=== PATIENT | female | born 1935 | race Caucasian/White ===

== ENCOUNTER 2018-01-07 20:14 | Emergency (ER) | payer MEDICARE, BC ==
[2018-01-07 20:36] VITALS: BP 162/75
--- NOTE | 2018-01-07 20:54 | EDM.PDOC ---
ED HPI GENERAL MEDICAL PROBLEM - General Chief Complaint: Respiratory Problem Stated Complaint: SOB Time Seen by Provider: 01/07/18 20:45 Source of Information: Reports: Patient, Old Records, RN History Limitations: Reports: No Limitations - History of Present Illness INITIAL COMMENTS - FREE TEXT/NARRATIVE: 82 yo female presents with dyspnea of a couple days duration. Sx's worse with exertion or lying flat. No fever, cough, or pleuritic chest pain. No calf pain. Has a hx of afib. Onset: Gradual Onset Date: 01/05/18 Duration: Day(s):, Getting Worse Location: Reports: Chest Quality: Reports: Other (no pain) Severity: Mild Improves with: Reports: Rest Worsens with: Reports: Movement ( or lying flat) Context: Reports: Other (Hx of "fluid overload" and afib) Associated Symptoms: Reports: Shortness of Breath. 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: Other (see below) (none) - Related Data Allergies Allergy/AdvReac Type Severity Reaction Status Date / Time atorvastatin AdvReac Intermediate Muscle Verified 01/07/18 20:49 Aches simvastatin AdvReac Intermediate Muscle Verified 01/07/18 20:49 Aches Home Meds: Home Meds Cholecalciferol (Vitamin D3) [Vitamin D3] 2,000 unit PO DAILY 06/21/13 [History] Digoxin [Lanoxin] 125 mcg PO DAILY 06/21/13 [History] Metoprolol Tartrate [Lopressor] 100 mg PO BID 06/21/13 [History] Docusate Sodium [Colace] 100 mg PO DAILY PRN 09/01/14 [History] Losartan [Cozaar] 25 mg PO DAILY 09/01/14 [History] Aspirin 1 tab PO DAILY 05/19/16 [History] glipiZIDE [Glipizide] 5 mg PO BID 05/19/16 [History] Warfarin [Coumadin] 1.25 mg PO Tu@1300 tablet 07/22/16 [Rx] Warfarin [Coumadin] 2.5 mg PO SuMoWeThFrSa@1300 tablet 07/22/16 [Rx] Spironolactone [Aldactone] 25 mg PO DAILY #15 tab 01/07/18 [Rx] Past Medical History Cardiovascular History: Reports: Afib, Hypertension Respiratory History: Reports: Other (See Below) Other Respiratory History: spot on right lung Gastrointestinal History: Reports: Cholelithiasis Genitourinary History: Reports: Renal Calculus 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: Endocrine/Metabolic History: Reports: Diabetes, Type II, Hypothyroidism Oncologic (Cancer) History: Reports: Breast - Infectious Disease History Infectious Disease History: Reports: Other (See Below) Other Infectious Disease History: pt is unaware - Past Surgical History Cardiovascular Surgical History: Reports: None GI Surgical History: Reports: Cholecystectomy, Colonoscopy Female Surgical History: Reports: Kidney stone extraction Endocrine Surgical History: Reports: Parathyroidectomy Oncologic Surgical History: Reports: Mastectomy Other Oncologic Surgeries/Procedures: right Social & Family History - Tobacco Use Smoking Status *Q: Never Smoker Years of Tobacco use: 10 Used Tobacco, but Quit: Yes Month/Year Tobacco Last Used: Second Hand Smoke Exposure: No - Caffeine Use Caffeine Use: Reports: None - Alcohol Use Days Per Week of Alcohol Use: 0 - Recreational Drug Use Recreational Drug Use: No ED ROS GENERAL - Review of Systems Review Of Systems: See Below Constitutional: Reports: No Symptoms HEENT: Reports: No Symptoms Respiratory: Reports: Shortness of Breath. Denies: Wheezing, Pleuritic Chest Pain, Cough, Sputum, Hemoptysis Cardiovascular: Reports: No Symptoms GI/Abdominal: Reports: No Symptoms : Reports: No Symptoms Musculoskeletal: Reports: No Symptoms Skin: Reports: No Symptoms Neurological: Reports: No Symptoms ED EXAM, GENERAL - Physical Exam Exam: See Below Exam Limited By: No Limitations General Appearance: Alert, WD/WN, No Apparent Distress Eye Exam: Bilateral Eye: Normal Inspection Ears: Normal External Exam, Normal Canal, Hearing Grossly Normal, Normal TMs Ear Exam: Bilateral Ear: Auricle Normal, Canal Normal, TM normal Nose: Normal Inspection, Normal Mucosa, No Blood Throat/Mouth: Normal Inspection, Normal Lips, Normal Oropharynx, Normal Voice, No Airway Compromise Head: Atraumatic, Normocephalic Neck: Normal Inspection, Supple, Non-Tender Respiratory/Chest: No Respiratory Distress, Lungs Clear, Normal Breath Sounds, No Accessory Muscle Use Cardiovascular: Regular Rate, Rhythm, No Edema GI/Abdominal: Normal Bowel Sounds, Soft, Non-Tender, No Distention Back Exam: Normal Inspection. No: CVA Tenderness (R), CVA Tenderness (L) Extremities: Normal Inspection, Normal Range of Motion, Non-Tender, No Pedal Edema Neurological: Alert, Oriented, CN II-XII Intact, Normal Cognition Psychiatric: Normal Affect, Normal Mood Skin Exam: Warm, Dry, Intact, Normal Color, No Rash Lymphatic: No Adenopathy Course - Vital Signs Last Recorded V/S: Last Vital Signs Temp 37.2 C 01/07/18 20:56 Pulse 90 01/07/18 20:56 Resp 24 H 01/07/18 20:56 BP 162/75 H 01/07/18 21:34 Pulse Ox 92 L 01/07/18 20:56 - Orders/Labs/Meds Orders: Active Orders 24 hr Category Date Time Status Cardiac Monitoring [RC] .As Directed Care 01/07/18 20:49 Active Chest 2V [CR] Stat Exams 01/07/18 20:50 Taken Sodium Chloride 0.9% [Saline Flush] Med 01/07/18 21:22 Active 10 ml FLUSH ASDIRECTED PRN Saline Lock Insert [OM.PC] Routine Oth 01/07/18 21:22 Ordered Medication Orders Sodium Chloride (Saline Flush) 10 ml FLUSH ASDIRECTED PRN PRN Reason: Keep Vein Open Last Admin: 01/07/18 21:34 Dose: 10 ml Labs: Laboratory Tests 01/07/18 01/07/18 01/07/18 Range/Units 21:00 21:00 21:00 WBC 8.5 (4.5-11.0) K/uL RBC 4.48 (3.30-5.50) M/uL Hgb 13.4 (12.0-15.0) g/dL Hct 40.6 (36.0-48.0) % MCV 91 (80-98) fL MCH 30 (27-31) pg MCHC 33 (32-36) % Plt Count 217 (150-400) K/uL Sodium 138 L (140-148) mmol/L Potassium 3.6 (3.6-5.2) mmol/L Chloride 104 (100-108) mmol/L Carbon Dioxide 26 (21-32) mmol/L Anion Gap 11.6 (5.0-14.0) mmol/L BUN 22 H (7-18) mg/dL Creatinine 1.3 H (0.6-1.0) mg/dL Est Cr Clr Drug Dosing 34.87 mL/min Estimated GFR (MDRD) 39 L (>60) Glucose 281 H (74-106) mg/dL Calcium 8.3 L (8.5-10.1) mg/dL Troponin I < 0.017 (0.000-0.056) ng/mL NT-Pro-B Natriuret Pep 7675 H (5-450) pg/mL Meds: Medications Generic Name Dose Route Start Last Admin Trade Name Freq PRN Reason Stop Dose Admin Sodium Chloride 10 ml 01/07/18 21:22 01/07/18 21:34 Saline Flush FLUSH 10 ml ASDIRECTED PRN Administration Keep Vein Open Discontinued Medications Generic Name Dose Route Start Last Admin Trade Name Freq PRN Reason Stop Dose Admin Furosemide 40 mg 01/07/18 21:22 01/07/18 21:34 Lasix IVPUSH 01/07/18 21:23 40 mg ONETIME ONE Administration - Radiology Interpretation Free Text/Narrative:: CXR-increased cephalization of pulmonary vasculature. Departure - Departure Time of Disposition: 22:21 Disposition: Home, Self-Care 01 Condition: Fair Clinical Impression: Congestive heart failure Qualifiers: Heart failure type: systolic Heart failure chronicity: acute on chronic Qualified Code(s): I50.23 - Acute on chronic systolic (congestive) heart failure - Discharge Information Prescriptions: Spironolactone [Aldactone] 25 mg PO DAILY #15 tab Referrals: PCP,None [Primary Care Provider] - Forms: ED Department Discharge Additional Instructions: Increase your Cozaar to 50 mg every day. Take spironolactone 25 mg every morning. Avoid salt. Recheck this week in the clinic, call for an appt. - My Orders Last 24 Hours: My Active Orders 01/07/18 20:49 Cardiac Monitoring [RC] .As Directed 01/07/18 20:50 Chest 2V [CR] Stat 01/07/18 21:22 Sodium Chloride 0.9% [Saline Flush] 10 ml FLUSH ASDIRECTED PRN Saline Lock Insert [OM.PC] Routine - Assessment/Plan Last 24 Hours: My Active Orders 01/07/18 20:49 Cardiac Monitoring [RC] .As Directed 01/07/18 20:50 Chest 2V [CR] Stat 01/07/18 21:22 Sodium Chloride 0.9% [Saline Flush] 10 ml FLUSH ASDIRECTED PRN Saline Lock Insert [OM.PC] Routine
[2018-01-07] MEDS ORDERED: Furosemide 40 MG/4 ML VIAL IVPUSH ONE (21:22)
[2018-01-07] MEDS ORDERED: Sodium Chloride 0.9% 10 ML Syringe FLUSH PRN (21:22)
--- NOTE | 2018-01-08 09:25 | CR ---
Cardiomegaly is mild/moderate.. No focal consolidation. Mild interstitial thickening can indicate mil d vascular congestion.
== END 2018-01-07 22:51 | disposition home or self-care (01) ==
LOC: JP.ED 20:14
DX: I11.0 Hypertensive heart disease with heart failure (principal); I50.23 Acute on chronic systolic (congestive) heart failure; I48.91 Unspecified atrial fibrillation; Z87.442 Personal history of urinary calculi; E03.9 Hypothyroidism, unspecified; Z79.01 Long term (current) use of anticoagulants; Z88.8 Allergy status to other drugs, medicaments and biological substances; Z79.82 Long term (current) use of aspirin; Z79.899 Other long term (current) drug therapy; E11.9 Type 2 diabetes mellitus without complications
CPT/HCPCS: 36415; 71046; 80048; 83880; 84484; 85027; 96374; 99284; 99285; J1940; J7050

== ENCOUNTER 2018-07-20 15:08 | Emergency (ER) | payer MEDICARE, BC ==
[2018-07-20] MEDS ORDERED: Metoprolol Tartrate 50 MG Tab PO ONE (16:15)
[2018-07-20 16:34] VITALS: BP 117/79
--- NOTE | 2018-07-20 16:38 | EDM.PDOC ---
ED HPI GENERAL MEDICAL PROBLEM - General Chief Complaint: Chest Pain Stated Complaint: AFIB Time Seen by Provider: 07/20/18 15:20 Source of Information: Reports: Patient, Family History Limitations: Reports: No Limitations - History of Present Illness INITIAL COMMENTS - FREE TEXT/NARRATIVE: 83-year-old female with known atrial fibrillation has a cardiology consultation at [facility] for an overdrive pacemaker but recently had a cardiology consult in [place] at which time they stopped her digoxin, and reduced her metoprolol from 100 mg twice daily to 100 mg in the evening. Over the past 1-2 days she's had increased dyspnea with activity. She denies pain, no nausea or vomiting. 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 Onset: Gradual Duration: Day(s): (Over the past 2 days) Associated Symptoms: Reports: Cough, Shortness of Breath, Weakness. Denies: Chest Pain - Related Data Allergies Allergy/AdvReac Type Severity Reaction Status Date / Time atorvastatin AdvReac Intermediate Muscle Verified 07/20/18 15:21 Aches simvastatin AdvReac Intermediate Muscle Verified 07/20/18 15:21 Aches Home Meds: Home Meds Cholecalciferol (Vitamin D3) [Vitamin D3] 2,000 unit PO DAILY 06/21/13 [History] Metoprolol Tartrate [Lopressor] 100 mg PO BID 06/21/13 [History] Docusate Sodium [Colace] 100 mg PO DAILY PRN 09/01/14 [History] Losartan [Cozaar] 25 mg PO DAILY 09/01/14 [History] Aspirin 1 tab PO DAILY 05/19/16 [History] glipiZIDE [Glipizide] 5 mg PO BID 05/19/16 [History] Spironolactone [Aldactone] 25 mg PO DAILY #15 tab 01/07/18 [Rx] Levothyroxine 125 mcg PO ACBREAKFAST 05/23/18 [History] Warfarin [Coumadin] 2.5 mg PO DAILY 05/23/18 [History] traZODone 50 mg PO BEDTIME 05/23/18 [History] Past Medical History HEENT History: Reports: Impaired Vision Cardiovascular History: Reports: Afib, High Cholesterol, Hypertension Other Cardiovascular History: cardioversions in the past Respiratory History: Reports: SOB, Other (See Below) Other Respiratory History: spot on right lung Gastrointestinal History: Reports: Cholelithiasis Genitourinary History: Reports: Renal Calculus 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: Endocrine/Metabolic History: Reports: Diabetes, Type II, Hypothyroidism, Vitamin D Deficiency Oncologic (Cancer) History: Reports: Breast - Infectious Disease History Infectious Disease History: Reports: Other (See Below) Other Infectious Disease History: pt is unaware - Past Surgical History Head Surgeries/Procedures: Reports: None HEENT Surgical History: Reports: None Cardiovascular Surgical History: Reports: None Respiratory Surgical History: Reports: None GI Surgical History: Reports: Cholecystectomy, Colonoscopy Female Surgical History: Reports: Kidney stone extraction Endocrine Surgical History: Reports: Parathyroidectomy Oncologic Surgical History: Reports: Mastectomy Other Oncologic Surgeries/Procedures: right Dermatological Surgical History: Reports: None Social & Family History - Family History Family Medical History: Noncontributory - Tobacco Use Smoking Status *Q: Former Smoker Used Tobacco, but Quit: Yes Month/Year Tobacco Last Used: 1971 - Caffeine Use Caffeine Use: Reports: None - Recreational Drug Use Recreational Drug Use: No ED ROS GENERAL - Review of Systems Review Of Systems: See Below Constitutional: Reports: Malaise. Denies: Fever, Chills Respiratory: Reports: Shortness of Breath, Cough Cardiovascular: Reports: Palpitations. Denies: Chest Pain GI/Abdominal: Denies: Nausea, Vomiting Skin: Reports: No Symptoms Neurological: Denies: Headache ED EXAM, GENERAL - Physical Exam Exam: See Below Exam Limited By: No Limitations General Appearance: Alert, No Apparent Distress Head: Atraumatic Respiratory/Chest: No Respiratory Distress, Lungs Clear Cardiovascular: Tachycardia, Irregularly Irregular GI/Abdominal: Soft, Non-Tender Extremities: No: Pedal Edema Neurological: Alert, Oriented Psychiatric: Normal Affect, Normal Mood EKG INTERPRETATION Rhythm: A-Fib Rate (Beats/Min): 129 Course - Vital Signs Last Recorded V/S: Last Vital Signs Temp 97.4 F 07/20/18 15:26 Pulse 115 H 07/20/18 16:33 Resp 24 H 07/20/18 15:46 BP 117/79 07/20/18 16:33 Pulse Ox 97 07/20/18 16:33 - Orders/Labs/Meds Meds: Medications Discontinued Medications Generic Name Dose Route Start Last Admin Trade Name Freq PRN Reason Stop Dose Admin Metoprolol Tartrate 100 mg 07/20/18 16:15 07/20/18 16:19 Lopressor PO 07/20/18 16:16 100 mg ONETIME ONE Administration - Re-Assessments/Exams Free Text/Narrative Re-Assessment/Exam: 07/20/18 16:32 An EKG was done which showed atrial fibrillation with rapid ventricular response. He was compared to her EKG from April and the voltages looks similar. Her symptoms are very likely the fact that she is now off of the digoxin and only on half of metoprolol. She has no peripheral edema. Initially when she arrived her O2 saturations were 88-92%, O2 saturations after she sat down and had some brief nasal cannula oxygen and was then discontinued and her O2 saturations remained 92-95%. She was given 100 mg of oral metoprolol and told to resume her regular twice daily dose but her plan is to go down to the [facility] tomorrow for her consultation. An EKG copy was given to the patient, as well as her EKG from 3 months ago. Departure - Departure Time of Disposition: 16:52 Disposition: Home, Self-Care 01 Condition: Good Clinical Impression: Atrial fibrillation Qualifiers: Atrial fibrillation type: chronic Qualified Code(s): I48.2 - Chronic atrial fibrillation Instructions: Atrial Fibrillation, [id number] Referrals: PCP,None [Primary Care Provider] - Forms: ED Department Discharge Care Plan Goals: Take an additional dose of metoprolol in 3 or 4 hours, and take both EKG copies to [facility] for your follow-up. Avoid salt, and return to the emergency room any time if you feel you are worsening
== END 2018-07-20 16:45 | disposition home or self-care (01) ==
LOC: JP.ED 15:08
DX: I48.2 Chronic atrial fibrillation (principal); I10 Essential (primary) hypertension; E78.00 Pure hypercholesterolemia, unspecified; E11.9 Type 2 diabetes mellitus without complications; E03.9 Hypothyroidism, unspecified; Z79.82 Long term (current) use of aspirin; Z87.891 Personal history of nicotine dependence; Z79.84 Long term (current) use of oral hypoglycemic drugs; Z79.01 Long term (current) use of anticoagulants; Z79.899 Other long term (current) drug therapy; Z88.8 Allergy status to other drugs, medicaments and biological substances
CPT/HCPCS: 93005; 99284; A9270

== ENCOUNTER 2020-02-20 23:28 | Emergency (ER) | payer MEDICARE, BC ==
--- NOTE | 2020-02-20 23:34 | EDM.PDOC ---
ED HPI GENERAL MEDICAL PROBLEM - General Stated Complaint: POSSIBLE STROKE? Time Seen by Provider: 02/20/20 23:30 Source of Information: Reports: Patient, Family History Limitations: Reports: No Limitations - History of Present Illness INITIAL COMMENTS - FREE TEXT/NARRATIVE: 84-year-old female who is on Coumadin therapy for atrial fibrillation, presents with left-sided weakness after a headache earlier today. She was at the Coumadin clinic today and her INR was 2.2, when she got home she had a headache which is unusual for her. She took some Tylenol and lay down, when she woke around 6 PM she noticed left leg and left arm weakness and lack of coordination. It has not improved as the evening has gone on so she called her children they came and got her and brought her in. Her headache is gone. She has had no fall or trauma. She is still unable to bear weight with any coordination and her balance is significantly affected. She also has some noticeable facial droop when her facial muscles are at rest, she can actively smile however and raise her eyebrows. Onset: Unknown/Unsure (Symptoms started around 6 PM) Duration: Hour(s): (6 hours) Location: Reports: Other (Left side) Associated Symptoms: Reports: Other (Headache earlier, resolved). Denies: Malaise, Nausea/Vomiting, Shortness of Breath - Related Data Allergies Allergy/AdvReac Type Severity Reaction Status Date / Time atorvastatin AdvReac Intermediate Muscle Verified 02/21/20 00:03 Aches simvastatin AdvReac Intermediate Muscle Verified 02/21/20 00:03 Aches Home Meds: Home Meds Cholecalciferol (Vitamin D3) [Vitamin D3] 2,000 unit PO DAILY 06/21/13 [History] Docusate Sodium [Colace] 100 mg PO DAILY PRN 09/01/14 [History] glipiZIDE [Glipizide] 5 mg PO BID 05/19/16 [History] Levothyroxine 125 mcg PO ACBREAKFAST 05/23/18 [History] Warfarin [Coumadin] 2.5 mg PO DAILY 05/23/18 [History] traZODone 50 mg PO BEDTIME 05/23/18 [History] Aspirin [Adult Low Dose Aspirin EC] 81 mg PO DAILY 08/30/18 [History] Bumetanide [Bumex] 4 mg PO DAILY #60 tab 09/02/18 [Rx] Metoprolol Succinate [Toprol XL 50mg] 50 mg PO DAILY #30 tab.er 09/02/18 [Rx] Past Medical History HEENT History: Reports: Impaired Vision Cardiovascular History: Reports: Afib, Heart Failure, High Cholesterol, Hypertension, Pacemaker Other Cardiovascular History: cardioversions in the past Respiratory History: Reports: SOB, Other (See Below) Other Respiratory History: spot on right lung Gastrointestinal History: Reports: Cholelithiasis Genitourinary History: Reports: Renal Calculus 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: Endocrine/Metabolic History: Reports: Diabetes, Type II, Hypothyroidism, Vitamin D Deficiency Oncologic (Cancer) History: Reports: Breast - Infectious Disease History Infectious Disease History: Reports: Chicken Pox, Measles, Mumps Other Infectious Disease History: pt is unaware - Past Surgical History Head Surgeries/Procedures: Reports: None HEENT Surgical History: Reports: None Cardiovascular Surgical History: Reports: None, AICD, Pacer Respiratory Surgical History: Reports: None GI Surgical History: Reports: Cholecystectomy, Colonoscopy Female Surgical History: Reports: Kidney stone extraction Endocrine Surgical History: Reports: Parathyroidectomy Oncologic Surgical History: Reports: Mastectomy Other Oncologic Surgeries/Procedures: right Dermatological Surgical History: Reports: None Social & Family History - Family History Family Medical History: Noncontributory - Caffeine Use Caffeine Use: Reports: Coffee, Soda - Living Situation & Occupation Occupation: Retired (lives with Son Bird.) ED ROS GENERAL - Review of Systems Review Of Systems: See Below Constitutional: Denies: Fever, Chills Respiratory: Denies: Shortness of Breath Cardiovascular: Denies: Chest Pain GI/Abdominal: Denies: Abdominal Pain : Reports: Other (Was treated for a UTI recently) Skin: Reports: Bruising (Bruises easily) Neurological: Reports: Headache Psychiatric: Reports: No Symptoms ED EXAM, NEURO - Physical Exam Exam: See Below Exam Limited By: No Limitations General Appearance: Alert, No Apparent Distress, Other (Answering questions appropriately, alert and oriented) Eye Exam: Bilateral Eye: EOMI Throat/Mouth: Other (Mild drooping of the left facial muscles when at rest) Head Exam: Atraumatic Neck: Supple, Non-Tender Respiratory/Chest: Lungs Clear Cardiovascular: Regular Rate, Rhythm GI/Abdominal: Soft, Non-Tender Neurological: Alert, Oriented x 3, Other (Patient has weakness of the grasp strength left hand and plantar flexion of left foot and has difficulty holding the leg against gravity.) Psychiatric: Normal Affect, Normal Mood Skin Exam: Warm, Dry Course - Vital Signs Last Recorded V/S: Last Vital Signs Temp 98.8 F 02/20/20 23:50 Pulse 62 02/20/20 23:50 Resp 20 02/20/20 23:50 BP 193/96 H 02/20/20 23:50 Pulse Ox 96 02/20/20 23:50 - Orders/Labs/Meds Labs: Laboratory Tests 02/20/20 02/20/20 Range/Units 23:50 23:50 WBC 9.1 (4.5-11.0) K/uL RBC 4.69 (3.30-5.50) M/uL Hgb 14.1 (12.0-15.0) g/dL Hct 42.7 (36.0-48.0) % MCV 91 (80-98) fL MCH 30 (27-31) pg MCHC 33 (32-36) % Plt Count 217 (150-400) K/uL Neut % (Auto) 52 (36-66) % Lymph % (Auto) 29 (24-44) % [facility] % (Auto) 12 H (2-6) % Eos % (Auto) 6 H (2-4) % Baso % (Auto) 1 (0-1) % Sodium 136 L (140-148) mmol/L Potassium 4.1 (3.6-5.2) mmol/L Chloride 100 (100-108) mmol/L Carbon Dioxide 27 (21-32) mmol/L Anion Gap 13.1 (5.0-14.0) mmol/L BUN 39 H (7-18) mg/dL Creatinine 2.0 H (0.6-1.0) mg/dL Est Cr Clr Drug Dosing 20.36 mL/min Estimated GFR (MDRD) 24 L (>60) Glucose 125 H (74-106) mg/dL Calcium 8.7 (8.5-10.1) mg/dL - Re-Assessments/Exams Free Text/Narrative Re-Assessment/Exam: 02/21/20 00:[address] was done which showed no evidence of bleed. Discussed her condition with Dr. Simon, emergency physician at [facility] and sent the CT film through further review. Urgent transfer by air will be done to [facility] for a stroke evaluation. 02/21/20 00:02 IMPRESSION: No acute findings and no significant changes from the prior exam. No sign of acute CVA or hemorrhage. Dictated by Popeye Yo MD @ 02/20/2020 11:59:34 PM 02/21/20 00:22 CBC is normal, creatinine 2.0 which is consistent with some past levels. Glucose is 125. The rest of her electrolytes are normal. She did not improve while in the emergency room but did not worsen. Departure - Departure Time of Disposition: 00:22 Disposition: DC/Tfer to [facility] 02 Clinical Impression: Right-sided cerebrovascular accident (CVA) - Discharge Information Referrals: PCP,None [Primary Care Provider] - Forms: ED Department Discharge Care Plan Goals: Patient is to be transferred urgently to [facility] in [place] for neurosurgery evaluation. Sepsis Event Note - Focused Exam Date Exam was Performed: 02/24/20 Time Exam was Performed: 17:17
[2020-02-20 23:54] VITALS: BP 193/96; PULSE 62
--- NOTE | 2020-02-21 | CRLCT ---
INDICATION: Headache with left-sided weakness. TECHNIQUE: Head CT without contrast. COMPARISON: 07/30/2018. FINDINGS: CSF spaces: Within normal limits for age. Brain parenchyma and extra-axial spaces: There are nonspecific low attenuation white matter changes consistent with chronic microvascular disease. No sign of mass, hemorrhage, or midline shift. Skull base and calvarium: The visualized paranasal sinuses and mastoid air cells demonstrate no acute or significant findings. The visualized orbits are grossly unremarkable. No skull fractures. IMPRESSION: No acute findings and no significant changes from the prior exam. No sign of acute CVA or hemorrhage. Dictated by Popeye Yo MD @ 02/20/2020 11:59:34 PM Please note that all CT scans at this facility use dose modulation, iterative reconstruction, and/or weight-based dosing when appropriate to reduce radiation dose to as low as reasonably achievable. Dictated by: Popeye Yo MD @ 02/20/2020 23:59:43 (Electronically Signed)
== END 2020-02-21 00:18 ==
LOC: JP.ED 23:28
DX: I63.9 Cerebral infarction, unspecified (principal); E78.00 Pure hypercholesterolemia, unspecified; I11.0 Hypertensive heart disease with heart failure; I50.9 Heart failure, unspecified; I48.91 Unspecified atrial fibrillation; E11.9 Type 2 diabetes mellitus without complications; E03.9 Hypothyroidism, unspecified; Z79.01 Long term (current) use of anticoagulants; Z79.82 Long term (current) use of aspirin; Z79.84 Long term (current) use of oral hypoglycemic drugs; Z88.8 Allergy status to other drugs, medicaments and biological substances; Z79.899 Other long term (current) drug therapy
CPT/HCPCS: 36415; 70450; 80048; 85025; 99284; 99285-25

== ENCOUNTER 2021-02-13 15:11 | Emergency (ER) | payer MEDICARE, BC ==
[2021-02-13 16:20] VITALS: BP 124/60; PULSE 59
--- NOTE | 2021-02-13 16:21 | CRLCT ---
INDICATION: Expressive aphasia for 1 hour. Stroke protocol. Evaluate for stroke. TECHNIQUE: CT head without IV contrast. COMPARISON: CT head 02/20/2020. FINDINGS: Moderately prominent intracranial vascular calcifications are moderate. Prominent confluent and patchy small-vessel ischemic disease in the brain stable. Old infarct in the right cerebellar hemisphere. Mild to moderate cerebral and cerebellar atrophy stable. No intracranial hemorrhage, edema, or mass effect. Small old lacunar infarct in the white matter of the right frontal parietal region and in the right anterior lateral basal ganglia. Remainder negative. IMPRESSION: Moderate chronic intracranial disease unchanged from 02/20/2020 with no acute intracranial disease including no intracranial hemorrhage. Please note that all CT scans at this facility use dose modulation, iterative reconstruction, and/or weight-based dosing when appropriate to reduce radiation dose to as low as reasonably achievable. Dictated by Mau Allison MD @ 02/13/2021 4:21:[address] Mau Allison @ Feb 13 2021 4:21PM
--- NOTE | 2021-02-13 16:25 | EDM.PDOC ---
ED HPI GENERAL MEDICAL PROBLEM - General Chief Complaint: Neuro Symptoms/Deficits Stated Complaint: POSSIBLE STROKE Time Seen by Provider: 02/13/21 15:30 Source of Information: Reports: Patient, Family History Limitations: Reports: Physical Impairment (Initially the patient had some expressive aphasia but the family provided good history) - History of Present Illness INITIAL COMMENTS - FREE TEXT/NARRATIVE: 85-year-old female has had 1 hour of aphasia, but denies a headache or any other symptoms. Her daughter gave her a Mother's Day gift and she was unable to articulate thank you and became fairly confused. There is a concern she was taking medications inappropriately and possibly doubled up on some medicines. She has no peripheral weakness, she is able to ambulate but they called the ambulance. Denies a headache or visual disturbance. Onset: Sudden (Symptoms started fairly suddenly about 45 minutes ago) Associated Symptoms: Reports: Confusion (Confusion and expressive aphasia are her only symptoms). Denies: Fever/Chills, Headaches, Malaise, Nausea/Vomiting, Shortness of Breath, Weakness - Related Data Allergies Allergy/AdvReac Type Severity Reaction Status Date / Time atorvastatin AdvReac Intermediate Muscle Verified 02/21/20 00:03 Aches simvastatin AdvReac Intermediate Muscle Verified 02/21/20 00:03 Aches Home Meds: Home Meds Cholecalciferol (Vitamin D3) [Vitamin D3] 2,000 unit PO DAILY 06/21/13 [History] glipiZIDE [Glipizide] 5 mg PO BID 05/19/16 [History] Levothyroxine 112 mcg PO ACBREAKFAST 05/23/18 [History] Warfarin [Coumadin] 2.5 mg PO DAILY 05/23/18 [History] traZODone 50 mg PO BEDTIME 05/23/18 [History] Aspirin [Adult Low Dose Aspirin EC] 81 mg PO DAILY 08/30/18 [History] Losartan [Cozaar] 12.5 mg PO DAILY 02/13/21 [History] Metoprolol Succinate [Toprol XL 50mg] 100 mg PO DAILY 02/13/21 [History] Rosuvastatin [Crestor] 5 mg PO Q7D 02/13/21 [History] Torsemide 10 mg PO DAILY 02/13/21 [History] Past Medical History HEENT History: Reports: Impaired Vision Cardiovascular History: Reports: Afib, Heart Failure, High Cholesterol, Hypertension, Pacemaker Other Cardiovascular History: cardioversions in the past Respiratory History: Reports: SOB, Other (See Below) Other Respiratory History: spot on right lung Gastrointestinal History: Reports: Cholelithiasis Genitourinary History: Reports: Renal Calculus 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: Endocrine/Metabolic History: Reports: Diabetes, Type II, Hypothyroidism, Vitamin D Deficiency Oncologic (Cancer) History: Reports: Breast - Infectious Disease History Infectious Disease History: Reports: Chicken Pox, Measles, Mumps Other Infectious Disease History: pt is unaware - Past Surgical History Head Surgeries/Procedures: Reports: None HEENT Surgical History: Reports: None Cardiovascular Surgical History: Reports: None, AICD, Pacer Respiratory Surgical History: Reports: None GI Surgical History: Reports: Cholecystectomy, Colonoscopy Female Surgical History: Reports: Kidney stone extraction Endocrine Surgical History: Reports: Parathyroidectomy Oncologic Surgical History: Reports: Mastectomy Other Oncologic Surgeries/Procedures: right Dermatological Surgical History: Reports: None Social & Family History - Family History Family Medical History: No Pertinent Family History - Tobacco Use Tobacco Use Status *Q: Never Tobacco User - Caffeine Use Caffeine Use: Reports: Coffee, Soda - Living Situation & Occupation Occupation: Retired (lives with Son Bird.) ED ROS GENERAL - Review of Systems Review Of Systems: See Below Constitutional: Denies: Fever, Chills, Malaise HEENT: Reports: Other (Denies tongue numbness). Denies: Vision Change Respiratory: Denies: Shortness of Breath, Cough Cardiovascular: Denies: Chest Pain GI/Abdominal: Denies: Abdominal Pain, Nausea, Vomiting Skin: Reports: No Symptoms Neurological: Reports: Confusion, Trouble Speaking. Denies: Dizziness, Paresthesia, Weakness Psychiatric: Reports: No Symptoms ED EXAM, NEURO - Physical Exam Exam: See Below Exam Limited By: No Limitations General Appearance: Alert, No Apparent Distress, Other (On arrival patient did have slurred speech and fairly significant expressive aphasia) Eye Exam: Bilateral Eye: EOMI, PERRL Respiratory/Chest: No Respiratory Distress, Lungs Clear Cardiovascular: Regular Rate, Rhythm Neurological: Alert, No Motor/Sensory Deficits (Other than the expressive aphasia, strength of the facial muscles on extremities was equal) Psychiatric: Other (Initially confused but that cleared rapidly) Skin Exam: Warm, Dry Course - Vital Signs Last Recorded V/S: Last Vital Signs Temp 97.7 F 02/13/21 15:38 Pulse 59 L 02/13/21 16:20 Resp 14 02/13/21 16:20 BP 124/60 02/13/21 16:20 Pulse Ox 95 02/13/21 16:20 - Orders/Labs/Meds Labs: Laboratory Tests 02/13/21 02/13/21 02/13/21 Range/Units 15:25 15:54 15:54 WBC 9.4 (4.5-11.0) K/uL RBC 4.90 (3.30-5.50) M/uL Hgb 15.2 H (12.0-15.0) g/dL Hct 44.6 (36.0-48.0) % MCV 91 (80-98) fL MCH 31 (27-31) pg MCHC 34 (32-36) % Plt Count 195 (150-400) K/uL Neut % (Auto) 63 (36-66) % Lymph % (Auto) 20 L (24-44) % [place] % (Auto) 11 H (2-6) % Eos % (Auto) 5 H (2-4) % Baso % (Auto) 1 (0-1) % PT 25.2 H (9.5-12.0) sec INR 2.35 H D (0.80-1.20) Sodium (140-148) mmol/L Potassium (3.6-5.2) mmol/L Chloride (100-108) mmol/L Carbon Dioxide (21-32) mmol/L Anion Gap (5.0-14.0) mmol/L BUN (7-18) mg/dL Creatinine (0.6-1.0) mg/dL Est Cr Clr Drug Dosing mL/min Estimated GFR (MDRD) (>60) Glucose (74-106) mg/dL POC Glucose 175 H (74-106) mg/dL Calcium (8.5-10.1) mg/dL Total Bilirubin (0.2-1.0) mg/dL AST (15-37) U/L ALT (12-78) U/L Alkaline Phosphatase (46-116) U/L Total Protein (6.4-8.2) g/dL Albumin (3.4-5.0) g/dL Globulin (2.3-3.5) g/dL Albumin/Globulin Ratio (1.2-2.2) 02/13/21 Range/Units 15:54 WBC (4.5-11.0) K/uL RBC (3.30-5.50) M/uL Hgb (12.0-15.0) g/dL Hct (36.0-48.0) % MCV (80-98) fL MCH (27-31) pg MCHC (32-36) % Plt Count (150-400) K/uL Neut % (Auto) (36-66) % Lymph % (Auto) (24-44) % [place] % (Auto) (2-6) % Eos % (Auto) (2-4) % Baso % (Auto) (0-1) % PT (9.5-12.0) sec INR (0.80-1.20) Sodium 142 (140-148) mmol/L Potassium 4.4 (3.6-5.2) mmol/L Chloride 100 (100-108) mmol/L Carbon Dioxide 26 (21-32) mmol/L Anion Gap 16.3 H (5.0-14.0) mmol/L BUN 33 H (7-18) mg/dL Creatinine 2.1 H (0.6-1.0) mg/dL Est Cr Clr Drug Dosing 20.47 mL/min Estimated GFR (MDRD) 22 L (>60) Glucose 169 H (74-106) mg/dL POC Glucose (74-106) mg/dL Calcium 9.1 (8.5-10.1) mg/dL Total Bilirubin 0.6 D (0.2-1.0) mg/dL AST 18 (15-37) U/L ALT 31 (12-78) U/L Alkaline Phosphatase 89 (46-116) U/L Total Protein 7.2 (6.4-8.2) g/dL Albumin 3.6 (3.4-5.0) g/dL Globulin 3.6 H (2.3-3.5) g/dL Albumin/Globulin Ratio 1.0 L (1.2-2.2) - Re-Assessments/Exams Free Text/Narrative Re-Assessment/Exam: 02/14/21 07:[address] the head was done which was negative and by the time the patient came back from the CT she was improving significantly. She was kept on cardiac monitoring for another 30 minutes and symptoms completely cleared. The family is thinking this may have been a medication side effect more than a TIA type of issue, but a TIA is certainly a possibility. INR is 2.3 so she is protected and anticoagulated. The rest of her labs were reassuring, she has chronic renal insufficiency but it is stable. Patient was discharged home and will return if symptoms recur especially if she resumes her regular medications on a correct schedule and she still has symptoms. Departure - Departure Time of Disposition: 16:38 Disposition: Home, Self-Care 01 Clinical Impression: Expressive aphasia, TIA (transient ischemic attack) - Discharge Information Instructions: Transient Ischemic Attack, [id number] Referrals: Paulina Wright MD [Primary Care Provider] - Forms: ED Department Discharge Care Plan Goals: Continue your current medications as prescribed, increase activity as tolerated. Return anytime if symptoms are recurring and persistent. Sepsis Event Note (ED) - Evaluation Sepsis Screening Result: No Definite Risk
== END 2021-02-13 16:39 | disposition home or self-care (01) ==
LOC: JP.ED 15:11
DX: G45.9 Transient cerebral ischemic attack, unspecified (principal); R47.01 Aphasia; I48.91 Unspecified atrial fibrillation; E78.00 Pure hypercholesterolemia, unspecified; I11.0 Hypertensive heart disease with heart failure; I50.9 Heart failure, unspecified; E11.9 Type 2 diabetes mellitus without complications; E03.9 Hypothyroidism, unspecified; Z88.8 Allergy status to other drugs, medicaments and biological substances; Z79.01 Long term (current) use of anticoagulants; Z79.84 Long term (current) use of oral hypoglycemic drugs; Z79.899 Other long term (current) drug therapy; Z79.82 Long term (current) use of aspirin
CPT/HCPCS: 36415; 70450; 80053; 82947; 85025; 85610; 99283; 99285-25

== ENCOUNTER 2021-04-16 21:24 | Emergency (ER) | payer MEDICARE, BC ==
[2021-04-16 21:45] VITALS: BP 173/83; PULSE 65
--- NOTE | 2021-04-16 23:07 | EDM.PDOC ---
ED HPI GENERAL MEDICAL PROBLEM - General Chief Complaint: Lower Extremity Injury/Pain Stated Complaint: LEG PAIN Time Seen by Provider: 04/16/21 22:21 Source of Information: Reports: Patient, Family History Limitations: Reports: No Limitations - History of Present Illness INITIAL COMMENTS - FREE TEXT/NARRATIVE: Latonya is an 85-year-old female presenting to the ED for evaluation of "zingers" shooting up her right leg. The patient reportedly had a fall landing on both knees yesterday after she tripped over her walker. She was seen and evaluated in sports medicine and underwent x-rays of the knees. At that time, the patient had a wound on the anterior lower right romero but the doctor did not look at it because it was dressed. They did x-rays except for standing view x-rays. Today, the patient's been experiencing lightening bolt pain of the right leg from the lesion on the anterior lower leg up to the thigh and hip. These are brief electric type sensations causing her to jump. She denies any additional trauma. The symptoms started after the daughter applied some Neosporin to the wound. Initially, the daughter thought the wound was an abrasion from tripping over the walker yesterday, however, on examination today it does not appear to be an abrasion but rather coalescent vesicles. Patient was diagnosed with shingles in the left leg at the beginning of March and was put on Valtrex, however, she was only able to take it for 3 days before she started having significant side effects and discontinued it. The patient's daughter does not believe that the patient had shingles. Right Lower Leg Pain Score (Numeric/FACES): 10 - Related Data Allergies Allergy/AdvReac Type Severity Reaction Status Date / Time atorvastatin AdvReac Intermediate Muscle Verified 04/16/21 21:53 Aches simvastatin AdvReac Intermediate Muscle Verified 04/16/21 21:53 Aches Home Meds: Home Meds Cholecalciferol (Vitamin D3) [Vitamin D3] 2,000 unit PO DAILY 06/21/13 [History] glipiZIDE [Glipizide] 5 mg PO BID 05/19/16 [History] Levothyroxine 112 mcg PO ACBREAKFAST 05/23/18 [History] Warfarin [Coumadin] 2.5 mg PO DAILY 05/23/18 [History] Aspirin [Adult Low Dose Aspirin EC] 81 mg PO DAILY 08/30/18 [History] Losartan [Cozaar] 12.5 mg PO DAILY 02/13/21 [History] Metoprolol Succinate [Toprol XL 50mg] 100 mg PO DAILY 02/13/21 [History] Rosuvastatin [Crestor] 5 mg PO Q7D 02/13/21 [History] Torsemide 10 mg PO DAILY 02/13/21 [History] valACYclovir HCl [Valacyclovir] 1 tab PO DAILY 03/23/21 [History] Acyclovir 800 mg PO 5XDAY 7 Days #35 tablet 04/17/21 [Rx] Gabapentin [Neurontin] 100 mg PO TID #30 cap 04/17/21 [Rx] Past Medical History HEENT History: Reports: Impaired Vision Cardiovascular History: Reports: Afib, Heart Failure, High Cholesterol, Hypertension, Pacemaker Other Cardiovascular History: cardioversions in the past Respiratory History: Reports: SOB, Other (See Below) Other Respiratory History: spot on right lung Gastrointestinal History: Reports: Cholelithiasis Genitourinary History: Reports: Renal Calculus 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: Neurological History: Reports: CVA Endocrine/Metabolic History: Reports: Diabetes, Type II, Hypothyroidism, Vitamin D Deficiency Oncologic (Cancer) History: Reports: Breast Dermatologic History: Reports: None - Infectious Disease History Infectious Disease History: Reports: Chicken Pox, Measles, Mumps Other Infectious Disease History: pt is unaware - Past Surgical History Head Surgeries/Procedures: Reports: None HEENT Surgical History: Reports: None Cardiovascular Surgical History: Reports: None, AICD, Pacer Respiratory Surgical History: Reports: None GI Surgical History: Reports: Cholecystectomy, Colonoscopy Female Surgical History: Reports: Kidney stone extraction Endocrine Surgical History: Reports: Parathyroidectomy Oncologic Surgical History: Reports: Mastectomy Other Oncologic Surgeries/Procedures: right Dermatological Surgical History: Reports: None Social & Family History - Family History Family Medical History: No Pertinent Family History - Tobacco Use Tobacco Use Status *Q: Former Tobacco User Used Tobacco, but Quit: Yes Month/Year Tobacco Last Used: 1969 - Caffeine Use Caffeine Use: Reports: Coffee - Recreational Drug Use Recreational Drug Use: No - Living Situation & Occupation Occupation: Retired (lives with Son Bird.) Review of Systems - Review of Systems Review Of Systems: See Below Constitutional: Reports: No Symptoms Mouth/Throat: Reports: No Symptoms Respiratory: Reports: No Symptoms Cardiovascular: Reports: No Symptoms GI/Abdominal: Reports: No Symptoms Genitourinary: Reports: No Symptoms Musculoskeletal: Reports: Leg Pain (Left) Skin: Reports: Lesions (Lesion on the anterior lower right leg which is painful and swollen) Neurological: Reports: Other (Frequent, lightening bolt type pain in the left lower extremity extending up to the hip and groin. This makes the patient's leg jump.) Psychiatric: Reports: Anxiety ED EXAM, GENERAL - Physical Exam Exam: See Below Exam Limited By: No Limitations General Appearance: Alert, Anxious, Mild Distress Extremities: No Pedal Edema, Normal Capillary Refill Neurological: Alert, Oriented, Normal Cognition, No Motor/Sensory Deficits Psychiatric: Anxious Skin Exam: Rash (Coalescing vesicles on the anterior right romero with significant induration, redness, and exquisitely tender to even the lightest of touch. This appears to be the source of the "lightening bolt" pain going up the leg to the groin. This is concerning for shingles.) Course - Vital Signs Last Recorded V/S: Last Vital Signs Temp 36.2 C 04/16/21 21:54 Pulse 65 04/16/21 21:54 Resp 16 04/16/21 21:54 BP 173/83 H 04/16/21 21:54 Pulse Ox 96 04/16/21 21:54 - Orders/Labs/Meds Labs: Laboratory Tests 04/16/21 04/16/21 Range/Units 22:50 22:50 WBC 8.6 (4.5-11.0) K/uL RBC 4.50 (3.30-5.50) M/uL Hgb 14.0 (12.0-15.0) g/dL Hct 41.6 (36.0-48.0) % MCV 92 (80-98) fL MCH 31 (27-31) pg MCHC 34 (32-36) % Plt Count 211 (150-400) K/uL Neut % (Auto) 57.9 (36-66) % Lymph % (Auto) 23.6 L (24-44) % [place] % (Auto) 11.8 H (2-6) % Eos % (Auto) 5.7 H (2-4) % Baso % (Auto) 1.0 (0-1) % ESR 28 H (0-25) mm/hr Sodium 140 (140-148) mmol/L Potassium 3.8 (3.6-5.2) mmol/L Chloride 103 (100-108) mmol/L Carbon Dioxide 25 (21-32) mmol/L Anion Gap 12.0 (5.0-14.0) mmol/L BUN 29 H (7-18) mg/dL Creatinine 2.0 H (0.6-1.0) mg/dL Est Cr Clr Drug Dosing 21.49 mL/min Estimated GFR (MDRD) 24 L (>60) Glucose 180 H (74-106) mg/dL Calcium 8.4 L (8.5-10.1) mg/dL Magnesium 1.8 (1.8-2.4) mg/dL Total Bilirubin 0.5 (0.2-1.0) mg/dL AST 17 (15-37) U/L ALT 22 (12-78) U/L Alkaline Phosphatase 78 (46-116) U/L C-Reactive Protein 0.93 H (0.0-0.3) mg/dL Total Protein 6.8 (6.4-8.2) g/dL Albumin 3.1 L (3.4-5.0) g/dL Globulin 3.7 H (2.3-3.5) g/dL Albumin/Globulin Ratio 0.8 L (1.2-2.2) Meds: Medications Discontinued Medications Generic Name Dose Route Start Last Admin Trade Name Freq PRN Reason Stop Dose Admin Gabapentin 100 mg 04/17/21 00:01 04/17/21 00:12 Gabapentin 100 Mg Cap PO 04/17/21 00:02 100 mg ONETIME ONE Administration - Re-Assessments/Exams Free Text/Narrative Re-Assessment/Exam: 04/17/21 00:53 the rash on the leg does not look like an abrasion but rather coalescing vesicles worrisome for herpes zoster (shingles). Apparently the patient was diagnosed with that on the other leg and underwent a course of Valtrex which she was not able to tolerate and only was able to take 3 days worth of the medication. Her primary provider felt that it probably was not zoster and discontinued it. This lesion certainly looks like it is and is acting like zoster with intermittent episodes of "lightening bolt pain" indicating inflammation of the nerve. Her labs were reviewed with a leukocyte count of 8.6, hemoglobin of 14.0, hematocrit of 41.7 and platelet count of 21 1,000. Her comprehensive metabolic panel significant for a BUN of 29 with a creatinine of 2.0 and a GFR calculated 24 signifying chronic renal failure stage IV. His glucose is 180 and her CRP is 0.93 which is mildly elevated. Her erythrocyte sedimentation rate is 28 which is significantly elevated. We did a trial of gabapentin and she did have some improvement in the degree of pain but she is still having episodes so my plan is to increase this to 100 mg 3 times daily. In addition, we will put her on acyclovir instead of the Valtrex and see if she tolerates that any better. Departure - Departure Time of Disposition: 00:57 Disposition: Home, Self-Care 01 Clinical Impression: Left leg pain Herpes zoster Qualifiers: Herpes zoster complications: with nervous system involvement Herpes zoster neurologic complication detail: other postherpetic nervous system involvement Qualified Code(s): B02.29 - Other postherpetic nervous system involvement - Discharge Information Instructions: Shingles, [id number] Referrals: Paulina Wright MD [Primary Care Provider] - Forms: ED Department Discharge Care Plan Goals: We are going to put you on acyclovir 800 mg 5 times a day for 7 days to treat the shingles. Hopefully you are able to tolerate this better than the Valtrex. In addition we are going to put you on Neurontin (gabapentin) 100 mg 3 times a day to help control the pain. Follow-up with your primary care provider if not improving. Return to the ED for reevaluation if worsening. Sepsis Event Note (ED) - Evaluation Sepsis Screening Result: No Definite Risk - Focused Exam Vital Signs: Vital Signs Temp Pulse Resp BP Pulse Ox 04/16/21 21:54 36.2 C 65 16 173/83 H 96 04/16/21 21:43 36.2 C 65 16 173/83 H 96 - Problem List & Annotations (1) Herpes zoster SNOMED Code(s): 4441986 Code(s): B02.9 - ZOSTER WITHOUT COMPLICATIONS Status: Acute Priority: Medium Current Visit: Yes Qualifiers: Herpes zoster complications: with nervous system involvement Herpes zoster neurologic complication detail: other postherpetic nervous system involvement Qualified Code(s): B02.29 - Other postherpetic nervous system involvement (2) Left leg pain SNOMED Code(s): 717786336 Code(s): M79.605 - PAIN IN LEFT LEG Status: Acute Priority: Medium Current Visit: Yes - Problem List Review Problem List Initiated/Reviewed/Updated: Yes
[2021-04-17] MEDS ORDERED: Gabapentin 100 MG Cap PO ONE (00:01)
== END 2021-04-17 01:07 | disposition home or self-care (01) ==
LOC: JP.ED 21:24
DX: B02.29 Other postherpetic nervous system involvement (principal); I11.0 Hypertensive heart disease with heart failure; I50.9 Heart failure, unspecified; E78.00 Pure hypercholesterolemia, unspecified; I48.91 Unspecified atrial fibrillation; E11.9 Type 2 diabetes mellitus without complications; E03.9 Hypothyroidism, unspecified; Z87.891 Personal history of nicotine dependence; Z88.8 Allergy status to other drugs, medicaments and biological substances; Z79.82 Long term (current) use of aspirin; Z79.01 Long term (current) use of anticoagulants; Z79.899 Other long term (current) drug therapy
CPT/HCPCS: 36415; 80053; 83735; 85025; 85651; 86140; 99283; A9270

== ENCOUNTER 2022-03-26 23:04 | Emergency (ER) | payer MEDICARE, BC ==
[2022-03-26 23:16] VITALS: BP 152/65; PULSE 63
[2022-03-26] MEDS ORDERED: hydrOXYzine HCl 25 MG Tab PO ONE (23:23)
== END 2022-03-26 23:35 | disposition home or self-care (01) ==
LOC: JP.ED 23:04
DX: L03.114 Cellulitis of left upper limb (principal); S61.432A Puncture wound without foreign body of left hand, initial encounter; I48.91 Unspecified atrial fibrillation; I11.0 Hypertensive heart disease with heart failure; E78.00 Pure hypercholesterolemia, unspecified; I50.9 Heart failure, unspecified; E11.9 Type 2 diabetes mellitus without complications; E03.9 Hypothyroidism, unspecified; Z95.0 Presence of cardiac pacemaker; Z86.73 Personal history of transient ischemic attack (TIA), and cerebral infarction without residual deficits; Z88.8 Allergy status to other drugs, medicaments and biological substances; Z79.899 Other long term (current) drug therapy; Z79.82 Long term (current) use of aspirin; Z79.01 Long term (current) use of anticoagulants
CPT/HCPCS: 99283; A9270

== ENCOUNTER 2023-04-05 14:44 | Emergency (ER) | payer MEDICARE, BC ==
[2023-04-05 17:55] VITALS: BP 160/80; PULSE 60
== END 2023-04-05 18:48 | disposition home or self-care (01) ==
LOC: JP.ED 14:44
DX: T82.528A Displacement of other cardiac and vascular devices and implants, initial encounter (principal); I48.91 Unspecified atrial fibrillation; I13.0 Hypertensive heart and chronic kidney disease with heart failure and stage 1 through stage 4 chronic kidney disease, or unspecified chronic kidney disease; E11.22 Type 2 diabetes mellitus with diabetic chronic kidney disease; N18.30 Chronic kidney disease, stage 3 unspecified; I50.9 Heart failure, unspecified; E03.9 Hypothyroidism, unspecified; Z95.0 Presence of cardiac pacemaker; Z88.8 Allergy status to other drugs, medicaments and biological substances; Z79.01 Long term (current) use of anticoagulants; Z79.899 Other long term (current) drug therapy
CPT/HCPCS: 99283

== ENCOUNTER 2023-04-09 18:31 | Emergency (ER) | payer MEDICARE, BC ==
[2023-04-09 19:35] VITALS: BP 154/55; PULSE 64
[2023-04-09] MEDS ORDERED: hydrOXYzine HCl 25 MG Tab PO ONE (19:43)
[2023-04-09 19:55] LABS: HEMATOCRIT 39.8 % (34.3-46.0); HEMOGLOBIN 13.6 g/dL (11.2-15.5); MEAN CORPUSCULAR HEMOGLOBIN 31.3 pg (31.6-35.5); MEAN CORPUSCULAR HGB CONC 34.2 g/dL (31.6-35.5); MEAN CORPUSCULAR VOLUME 91.7 fL (81.4-99.0); RED BLOOD CELL COUNT 4.34 M/uL (3.77-5.24)
[2023-04-09 20:13] LABS: C-REACTIVE PROTEIN 0.65 mg/dL (0.0-0.3); CALCIUM 8.8 mg/dL (8.5-10.1); CREATININE 2.3 mg/dL (0.6-1.0); EST CRCL DRUG DOSING (CG) 18.01 mL/min; POTASSIUM,K 4.2 mmol/L (3.6-5.2)
[2023-04-09 20:21] LABS: ANION GAP 15.2 mmol/L (5.0-14.0)
[2023-04-09] MEDS ORDERED: Dexamethasone 4 MG/ML SDV IVPUSH ONE (21:04)
[2023-04-09] MEDS ORDERED: Cetirizine 10 MG Tab PO ONE (21:05)
[2023-04-09] MEDS ORDERED: Dexamethasone 4 MG/ML SDV PO ONE (21:06)
== END 2023-04-09 21:21 | disposition home or self-care (01) ==
LOC: JP.ED 18:31
DX: L29.9 Pruritus, unspecified (principal); I48.91 Unspecified atrial fibrillation; E11.22 Type 2 diabetes mellitus with diabetic chronic kidney disease; I13.0 Hypertensive heart and chronic kidney disease with heart failure and stage 1 through stage 4 chronic kidney disease, or unspecified chronic kidney disease; N18.30 Chronic kidney disease, stage 3 unspecified; I50.9 Heart failure, unspecified; E78.00 Pure hypercholesterolemia, unspecified; E03.9 Hypothyroidism, unspecified; Z95.0 Presence of cardiac pacemaker; Z88.1 Allergy status to other antibiotic agents; Z88.8 Allergy status to other drugs, medicaments and biological substances; Z79.01 Long term (current) use of anticoagulants; Z79.82 Long term (current) use of aspirin; Z79.84 Long term (current) use of oral hypoglycemic drugs; Z79.899 Other long term (current) drug therapy
CPT/HCPCS: 36415; 80048; 85027; 86140; 99283; A9270; J8540

== ENCOUNTER 2024-06-01 17:40 | Emergency (ER) | payer MEDICARE, BC ==
[2024-06-01 18:24] VITALS: BP 160/83; PULSE 61
[2024-06-01 18:25] LABS: APPEARANCE,URINE SLIGHTLY CLOUDY (CLEAR); BILIRUBIN,URINE NEGATIVE (NEGATIVE); COLOR,URINE YELLOW (YELLOW); GLUCOSE,URINE NEGATIVE (NEGATIVE); KETONES,URINE NEGATIVE (NEGATIVE); LEUKOCYTE ESTERASE,URINE MODERATE (NEGATIVE); NITRITE,URINE NEGATIVE (NEGATIVE); OCCULT BLOOD,URINE NEGATIVE (NEGATIVE); PH,URINE 5.5 (5.0-8.0); PROTEIN,URINE 100 mg/dL (NEGATIVE); UROBILINOGEN,URINE 0.2 EU/dL (0.2-1.0)
[2024-06-01 18:26] LABS: BASOPHILS ABSOLUTE AUTO 0.13 K/uL (0.00-0.10); BASOPHILS PERCENT AUTO 1.5 % (0.1-1.3); EOSINOPHILS PERCENT AUTO 4.5 % (0.0-5.4); HEMATOCRIT 37.2 % (34.3-46.0); HEMOGLOBIN 12.6 g/dL (11.2-15.5); IMMATURE GRAN ABSOLUTE AUTO 0.04 K/uL (0.00-0.23); IMMATURE GRAN PERCENT AUTO 0.5 % (0.0-0.7); LYMPHOCYTES ABSOLUTE AUTO 1.56 K/uL (0.8-3.3); LYMPHOCYTES PERCENT AUTO 17.6 % (11.4-47.7); MEAN CORPUSCULAR HEMOGLOBIN 29.6 pg (31.6-35.5); MEAN CORPUSCULAR HGB CONC 33.9 g/dL (31.6-35.5); MEAN CORPUSCULAR VOLUME 87.5 fL (81.4-99.0); MONOCYTES ABSOLUTE AUTO 0.94 K/uL (0.20-0.90); MONOCYTES PERCENT AUTO 10.6 % (3.3-12.6); NEUTROPHILS ABSOLUTE AUTO 5.81 K/uL (1.0-7.6); NEUTROPHILS PERCENT AUTO 65.3 % (40.0-78.1); PLATELET COUNT,PLT 187 K/uL (130-375); RED BLOOD CELL COUNT 4.25 M/uL (3.77-5.24); WHITE BLOOD CELL COUNT,WBC 8.9 K/uL (3.2-11.0)
[2024-06-01 18:31] LABS: RBC,URINE NOT SEEN (0-5)
[2024-06-01 18:32] LABS: AMORPHOUS SEDIMENT,URINE FEW; BACTERIA,URINE MODERATE; EPITHELIAL CELLS,URINE OCCASIONAL; MUCUS,URINE RARE
[2024-06-01 18:42] LABS: ANION GAP 12.3 mmol/L (5.0-14.0); CALCIUM 8.6 mg/dL (8.5-10.1); EST CRCL DRUG DOSING (CG) 19.24 mL/min; POTASSIUM,K 4.3 mmol/L (3.6-5.2)
== END 2024-06-01 19:16 | disposition home or self-care (01) ==
LOC: JP.ED 17:40
DX: N30.00 Acute cystitis without hematuria (principal); I12.9 Hypertensive chronic kidney disease with stage 1 through stage 4 chronic kidney disease, or unspecified chronic kidney disease; N18.4 Chronic kidney disease, stage 4 (severe); E78.00 Pure hypercholesterolemia, unspecified; E11.22 Type 2 diabetes mellitus with diabetic chronic kidney disease; E03.9 Hypothyroidism, unspecified; Z90.49 Acquired absence of other specified parts of digestive tract; Z79.890 Hormone replacement therapy; Z79.899 Other long term (current) drug therapy; Z79.01 Long term (current) use of anticoagulants; Z88.8 Allergy status to other drugs, medicaments and biological substances; Z88.2 Allergy status to sulfonamides; Z79.84 Long term (current) use of oral hypoglycemic drugs
CPT/HCPCS: 36415; 80048; 81001; 85025; 87086; 99284

== ENCOUNTER 2024-06-02 19:28 | Emergency (ER) | payer MEDICARE, BC ==
[2024-06-02 20:34] VITALS: BP 128/43; PULSE 69
[2024-06-02] MEDS: Phenazopyridine 95 MG Tab PO ONE (21:13)
[2024-06-02] MEDS: Ciprofloxacin 500 MG Tab PO ONE (21:13)
== END 2024-06-02 21:25 | disposition home or self-care (01) ==
LOC: JP.ED 19:28
DX: N39.0 Urinary tract infection, site not specified (principal); I12.9 Hypertensive chronic kidney disease with stage 1 through stage 4 chronic kidney disease, or unspecified chronic kidney disease; N18.9 Chronic kidney disease, unspecified; E11.9 Type 2 diabetes mellitus without complications; E03.9 Hypothyroidism, unspecified; Z88.2 Allergy status to sulfonamides; Z88.8 Allergy status to other drugs, medicaments and biological substances; Z79.01 Long term (current) use of anticoagulants; Z79.890 Hormone replacement therapy; Z79.899 Other long term (current) drug therapy; Z90.49 Acquired absence of other specified parts of digestive tract
CPT/HCPCS: 99284; A9270

== ENCOUNTER 2024-07-21 18:13 | Emergency (ER) | payer MEDICARE, BC ==
[2024-07-21 19:39] VITALS: BP 178/96; PULSE 87
[2024-07-21] MEDS: Codeine/guaiFENesin 10-100 MG/5 ML Syrup 5 ML Cup PO ONE (20:00)
[2024-07-21 20:20] LABS: BASOPHILS ABSOLUTE AUTO 0.09 K/uL (0.00-0.10); BASOPHILS PERCENT AUTO 1.1 % (0.1-1.3); EOSINOPHILS ABSOLUTE AUTO 0.38 K/uL (0.00-0.40); EOSINOPHILS PERCENT AUTO 4.8 % (0.0-5.4); HEMATOCRIT 37.2 % (34.3-46.0); HEMOGLOBIN 12.8 g/dL (11.2-15.5); IMMATURE GRAN ABSOLUTE AUTO 0.04 K/uL (0.00-0.23); IMMATURE GRAN PERCENT AUTO 0.5 % (0.0-0.7); LYMPHOCYTES ABSOLUTE AUTO 1.46 K/uL (0.8-3.3); LYMPHOCYTES PERCENT AUTO 18.5 % (11.4-47.7); MEAN CORPUSCULAR HEMOGLOBIN 29.8 pg (31.6-35.5); MEAN CORPUSCULAR HGB CONC 34.4 g/dL (31.6-35.5); MEAN CORPUSCULAR VOLUME 86.5 fL (81.4-99.0); MONOCYTES ABSOLUTE AUTO 0.71 K/uL (0.20-0.90); NEUTROPHILS PERCENT AUTO 66.1 % (40.0-78.1); PLATELET COUNT,PLT 168 K/uL (130-375); WHITE BLOOD CELL COUNT,WBC 7.9 K/uL (3.2-11.0)
[2024-07-21 20:38] LABS: INR 1.9; PROTHROMBIN TIME 19.2 sec (9.2-10.6)
[2024-07-21 20:43] LABS: A/G RATIO 0.9 (1.2-2.2); ALANINE AMINOTRANSFERASE,ALT 12 U/L (12-78); ALBUMIN 3.4 g/dL (3.4-5.0); ALKALINE PHOSPHATASE 99 U/L (46-116); ASPARTATE AMNIOTRANSFERASE,AST 16 U/L (15-37); BILIRUBIN TOTAL 0.5 mg/dL (0.2-1.0); BLOOD UREA NITROGEN,BUN 25 mg/dL (7-18); CALCIUM 9.1 mg/dL (8.5-10.1); CARBON DIOXIDE,CO2 27 mmol/L (21-32); CHLORIDE,CL 103 mmol/L (100-108); CREATININE 1.9 mg/dL (0.6-1.0); EST CRCL DRUG DOSING (CG) 20.25 mL/min; ESTIMATED GFR 25 mL/min (>60); GLUCOSE RANDOM 187 mg/dL (74-106); POTASSIUM,K 4.4 mmol/L (3.6-5.2); PROTEIN TOTAL,TP 7.1 g/dL (6.4-8.2); SODIUM,NA 139 mmol/L (140-148)
[2024-07-21 20:44] LABS: ANION GAP 13.4 mmol/L (5.0-14.0)
[2024-07-21 21:46] LABS: CORONAVIRUS COVID-19 NAA NEGATIVE (NEGATIVE); INFLUENZA A NAA NEGATIVE (NEGATIVE); INFLUENZA B NAA NEGATIVE (NEGATIVE); RESPIRATORY SYNCYTIAL VIR NAA NEGATIVE (NEGATIVE)
[2024-07-21] MEDS: diphenhydrAMINE 25 MG Cap PO ONE (22:03)
== END 2024-07-21 22:35 | disposition home or self-care (01) ==
LOC: JP.ED 18:13
DX: I13.0 Hypertensive heart and chronic kidney disease with heart failure and stage 1 through stage 4 chronic kidney disease, or unspecified chronic kidney disease (principal); I50.9 Heart failure, unspecified; N18.9 Chronic kidney disease, unspecified; E11.22 Type 2 diabetes mellitus with diabetic chronic kidney disease; E03.9 Hypothyroidism, unspecified; E78.00 Pure hypercholesterolemia, unspecified; Z86.73 Personal history of transient ischemic attack (TIA), and cerebral infarction without residual deficits; Z79.01 Long term (current) use of anticoagulants; Z79.84 Long term (current) use of oral hypoglycemic drugs; Z79.899 Other long term (current) drug therapy; Z88.2 Allergy status to sulfonamides; Z88.8 Allergy status to other drugs, medicaments and biological substances
CPT/HCPCS: 0241U; 36415; 71045; 80053; 83605; 83880; 85025; 85610; 99283; A9270

== ENCOUNTER 2024-09-05 09:40 | Emergency (ER) | payer MEDICARE, BC ==
[2024-09-05] MEDS: Polyethylene Glycol 3350 Powder 17 GM Packet PO ONE (10:29)
[2024-09-05 10:31] LABS: APPEARANCE,URINE CLOUDY (CLEAR); BILIRUBIN,URINE NEGATIVE (NEGATIVE); COLOR,URINE YELLOW (YELLOW); GLUCOSE,URINE NEGATIVE (NEGATIVE); KETONES,URINE NEGATIVE (NEGATIVE); LEUKOCYTE ESTERASE,URINE SMALL (NEGATIVE); NITRITE,URINE NEGATIVE (NEGATIVE); OCCULT BLOOD,URINE NEGATIVE (NEGATIVE); PROTEIN,URINE 100 mg/dL (NEGATIVE); UROBILINOGEN,URINE 0.2 EU/dL (0.2-1.0)
[2024-09-05 10:36] LABS: BASOPHILS PERCENT AUTO 1.2 % (0.1-1.3); EOSINOPHILS ABSOLUTE AUTO 0.35 K/uL (0.00-0.40); EOSINOPHILS PERCENT AUTO 4.1 % (0.0-5.4); HEMATOCRIT 35.2 % (34.3-46.0); HEMOGLOBIN 11.8 g/dL (11.2-15.5); IMMATURE GRAN ABSOLUTE AUTO 0.05 K/uL (0.00-0.23); IMMATURE GRAN PERCENT AUTO 0.6 % (0.0-0.7); LYMPHOCYTES ABSOLUTE AUTO 1.03 K/uL (0.8-3.3); LYMPHOCYTES PERCENT AUTO 12.2 % (11.4-47.7); MEAN CORPUSCULAR HEMOGLOBIN 30.3 pg (31.6-35.5); MEAN CORPUSCULAR HGB CONC 33.5 g/dL (31.6-35.5); MEAN CORPUSCULAR VOLUME 90.5 fL (81.4-99.0); MONOCYTES PERCENT AUTO 8.3 % (3.3-12.6); NEUTROPHILS ABSOLUTE AUTO 6.24 K/uL (1.0-7.6); NEUTROPHILS PERCENT AUTO 73.6 % (40.0-78.1); PLATELET COUNT,PLT 194 K/uL (130-375); RED BLOOD CELL COUNT 3.89 M/uL (3.77-5.24); WHITE BLOOD CELL COUNT,WBC 8.5 K/uL (3.2-11.0)
[2024-09-05 10:39] LABS: AMORPHOUS SEDIMENT,URINE NOT SEEN; BACTERIA,URINE MODERATE; EPITHELIAL CELLS,URINE MODERATE; MUCUS,URINE FEW; WBC,URINE 40-50 (0-5)
[2024-09-05 11:03] LABS: ALANINE AMINOTRANSFERASE,ALT 21 U/L (12-78); ALBUMIN 3.3 g/dL (3.4-5.0); ALKALINE PHOSPHATASE 80 U/L (46-116); ASPARTATE AMNIOTRANSFERASE,AST 14 U/L (15-37); BILIRUBIN TOTAL 0.6 mg/dL (0.2-1.0); BLOOD UREA NITROGEN,BUN 37 mg/dL (7-18); CALCIUM 9.3 mg/dL (8.5-10.1); CARBON DIOXIDE,CO2 29 mmol/L (21-32); CHLORIDE,CL 102 mmol/L (100-108); CREATININE 2.3 mg/dL (0.6-1.0); EST CRCL DRUG DOSING (CG) 17.33 mL/min; ESTIMATED GFR 20 mL/min (>60); GLUCOSE RANDOM 176 mg/dL (74-106); POTASSIUM,K 4.5 mmol/L (3.6-5.2); PROTEIN TOTAL,TP 7.2 g/dL (6.4-8.2); SODIUM,NA 139 mmol/L (140-148); TSH ULTRASENSITIVE 5.812 uIU/mL (0.358-3.740)
[2024-09-05 11:04] LABS: A/G RATIO 0.9 (1.2-2.2); ANION GAP 12.5 mmol/L (5.0-14.0)
[2024-09-05 11:50] VITALS: BP 156/71; PULSE 60
[2024-09-05] MEDS ORDERED: Polyethylene Glycol 3350 Powder 17 GM Packet PO ONE (11:51)
[2024-09-05] MEDS: Nitrofurantoin Monohydrate/Macrocrystalline 100 MG Cap PO ONE (11:57)
== END 2024-09-05 12:32 | disposition home or self-care (01) ==
LOC: JP.ED 09:40
DX: K59.00 Constipation, unspecified (principal); N30.00 Acute cystitis without hematuria; E03.9 Hypothyroidism, unspecified; I13.0 Hypertensive heart and chronic kidney disease with heart failure and stage 1 through stage 4 chronic kidney disease, or unspecified chronic kidney disease; I50.9 Heart failure, unspecified; N18.9 Chronic kidney disease, unspecified; E78.00 Pure hypercholesterolemia, unspecified; Z86.73 Personal history of transient ischemic attack (TIA), and cerebral infarction without residual deficits; E11.22 Type 2 diabetes mellitus with diabetic chronic kidney disease; Z79.899 Other long term (current) drug therapy; Z79.84 Long term (current) use of oral hypoglycemic drugs; Z79.01 Long term (current) use of anticoagulants; Z88.2 Allergy status to sulfonamides; Z88.8 Allergy status to other drugs, medicaments and biological substances; I48.91 Unspecified atrial fibrillation; Z95.818 Presence of other cardiac implants and grafts; Z51.81 Encounter for therapeutic drug level monitoring
CPT/HCPCS: 36415; 80053; 81001; 84443; 85025; 85610; 87086; 99283; 99284; A9270; P9604

== ENCOUNTER 2024-10-21 19:48 | Emergency (ER) | payer MEDICARE, BC ==
[2024-10-21 19:53] VITALS: PULSE 82
[2024-10-21 20:23] LABS: BASOPHILS ABSOLUTE AUTO 0.07 K/uL (0.00-0.10); BASOPHILS PERCENT AUTO 0.5 % (0.1-1.3); EOSINOPHILS ABSOLUTE AUTO 0.09 K/uL (0.00-0.40); EOSINOPHILS PERCENT AUTO 0.7 % (0.0-5.4); HEMATOCRIT 41.8 % (34.3-46.0); IMMATURE GRAN ABSOLUTE AUTO 0.05 K/uL (0.00-0.23); IMMATURE GRAN PERCENT AUTO 0.4 % (0.0-0.7); LYMPHOCYTES ABSOLUTE AUTO 0.45 K/uL (0.8-3.3); LYMPHOCYTES PERCENT AUTO 3.4 % (11.4-47.7); MEAN CORPUSCULAR HGB CONC 33.5 g/dL (31.6-35.5); MEAN CORPUSCULAR VOLUME 89.7 fL (81.4-99.0); MONOCYTES ABSOLUTE AUTO 0.35 K/uL (0.20-0.90); MONOCYTES PERCENT AUTO 2.7 % (3.3-12.6); NEUTROPHILS PERCENT AUTO 92.3 % (40.0-78.1); PLATELET COUNT,PLT 195 K/uL (130-375); RED BLOOD CELL COUNT 4.66 M/uL (3.77-5.24); WHITE BLOOD CELL COUNT,WBC 13.1 K/uL (3.2-11.0)
[2024-10-21] MEDS: Ondansetron 4 MG/2 ML SDV IVPUSH ONE (20:34)
[2024-10-21] MEDS: Sodium Chloride 0.9% 10 ML Syringe FLUSH PRN (20:34)
[2024-10-21] MEDS: Lactated Ringers 1,000 ML IV ONE (20:34)
[2024-10-21 20:38] LABS: CREATININE 2.8 mg/dL (0.6-1.0); EST CRCL DRUG DOSING (CG) 13.74 mL/min; POTASSIUM,K 5.4 mmol/L (3.6-5.2)
[2024-10-21 20:40] LABS: ANION GAP 14.4 mmol/L (5.0-14.0)
[2024-10-21 21:25] VITALS: BP 130/49
== END 2024-10-21 23:04 | disposition home or self-care (01) ==
LOC: JP.ED 19:48
DX: K52.9 Noninfective gastroenteritis and colitis, unspecified (principal); I13.0 Hypertensive heart and chronic kidney disease with heart failure and stage 1 through stage 4 chronic kidney disease, or unspecified chronic kidney disease; I50.9 Heart failure, unspecified; N18.9 Chronic kidney disease, unspecified; E78.00 Pure hypercholesterolemia, unspecified; E11.22 Type 2 diabetes mellitus with diabetic chronic kidney disease; E03.9 Hypothyroidism, unspecified; Z86.73 Personal history of transient ischemic attack (TIA), and cerebral infarction without residual deficits; Z90.49 Acquired absence of other specified parts of digestive tract; Z88.8 Allergy status to other drugs, medicaments and biological substances; Z79.01 Long term (current) use of anticoagulants; Z79.890 Hormone replacement therapy; Z79.899 Other long term (current) drug therapy
CPT/HCPCS: 36415; 80048; 85025; 96361; 96374; 99284; J2405; J7120; 99283

== ENCOUNTER 2024-10-24 15:08 | Inpatient (IN) | payer MEDICARE, BC ==
[2024-10-24 15:33] LABS: BASOPHILS ABSOLUTE AUTO 0.04 K/uL (0.00-0.10); BASOPHILS PERCENT AUTO 0.4 % (0.1-1.3); EOSINOPHILS ABSOLUTE AUTO 0.17 K/uL (0.00-0.40); EOSINOPHILS PERCENT AUTO 1.8 % (0.0-5.4); HEMATOCRIT 37.2 % (34.3-46.0); HEMOGLOBIN 12.5 g/dL (11.2-15.5); IMMATURE GRAN ABSOLUTE AUTO 0.04 K/uL (0.00-0.23); IMMATURE GRAN PERCENT AUTO 0.4 % (0.0-0.7); LYMPHOCYTES PERCENT AUTO 10.8 % (11.4-47.7); MEAN CORPUSCULAR HEMOGLOBIN 30.3 pg (31.6-35.5); MEAN CORPUSCULAR HGB CONC 33.6 g/dL (31.6-35.5); MEAN CORPUSCULAR VOLUME 90.1 fL (81.4-99.0); MONOCYTES ABSOLUTE AUTO 0.85 K/uL (0.20-0.90); MONOCYTES PERCENT AUTO 9.2 % (3.3-12.6); NEUTROPHILS ABSOLUTE AUTO 7.14 K/uL (1.0-7.6); NEUTROPHILS PERCENT AUTO 77.4 % (40.0-78.1); PLATELET COUNT,PLT 160 K/uL (130-375); RED BLOOD CELL COUNT 4.13 M/uL (3.77-5.24); WHITE BLOOD CELL COUNT,WBC 9.2 K/uL (3.2-11.0)
[2024-10-24] MEDS: Sodium Chloride 0.9% 1,000 ML IV ONE (15:38)
[2024-10-24 15:50] LABS: INR 3.9; PROTHROMBIN TIME 37.2 sec (9.2-10.6)
[2024-10-24 15:53] LABS: A/G RATIO 0.8 (1.2-2.2); ALANINE AMINOTRANSFERASE,ALT 29 U/L (12-78); ALBUMIN 3.2 g/dL (3.4-5.0); ALKALINE PHOSPHATASE 64 U/L (46-116); ASPARTATE AMNIOTRANSFERASE,AST 26 U/L (15-37); BILIRUBIN TOTAL 0.4 mg/dL (0.2-1.0); BLOOD UREA NITROGEN,BUN 59 mg/dL (7-18); CALCIUM 8.4 mg/dL (8.5-10.1); CARBON DIOXIDE,CO2 23 mmol/L (21-32); CHLORIDE,CL 103 mmol/L (100-108); EST CRCL DRUG DOSING (CG) 9.49 mL/min; ESTIMATED GFR 10 mL/min (>60); GLUCOSE RANDOM 133 mg/dL (74-106); POTASSIUM,K 4.7 mmol/L (3.6-5.2); PROTEIN TOTAL,TP 7.1 g/dL (6.4-8.2); SODIUM,NA 136 mmol/L (140-148)
[2024-10-24 15:56] LABS: LACTIC ACID 0.9 mmol/L (0.4-2.0)
[2024-10-24 15:59] LABS: ANION GAP 14.7 mmol/L (5.0-14.0); CREATININE 4.2 mg/dL (0.6-1.0)
[2024-10-24] MEDS ORDERED: Ondansetron 4 MG/2 ML SDV IV PRN (16:56)
[2024-10-24] MEDS: Sodium Chloride 0.9% 1,000 ML IV SCH (17:09)
[2024-10-24] MEDS: Insulin Lispro 100 Unit/ML 3 ML KwikPen SUBCUT SCH (17:42)
[2024-10-24] MEDS: Pantoprazole 40 MG Vial IV ONE (17:48)
[2024-10-24] MEDS: Pantoprazole 40 MG Vial ONE (17:57)
[2024-10-24] MEDS: Melatonin 3 MG Tab PO SCH (21:18)
[2024-10-24] MEDS: hydrALAZINE 25 MG Tab PO SCH (21:19)
[2024-10-24] MEDS: Carvedilol 12.5 MG Tab PO SCH (21:22)
[2024-10-25] MEDS: Acetaminophen 325 MG Tab PO PRN (05:04)
[2024-10-25 05:26] LABS: HEMATOCRIT 33.6 % (34.3-46.0); HEMOGLOBIN 11.1 g/dL (11.2-15.5); MEAN CORPUSCULAR HEMOGLOBIN 30.2 pg (31.6-35.5); MEAN CORPUSCULAR VOLUME 91.6 fL (81.4-99.0); RED BLOOD CELL COUNT 3.67 M/uL (3.77-5.24); WHITE BLOOD CELL COUNT,WBC 10.1 K/uL (3.2-11.0)
[2024-10-25 05:38] LABS: CALCIUM 7.6 mg/dL (8.5-10.1); EST CRCL DRUG DOSING (CG) 10.6 mL/min; POTASSIUM,K 4.7 mmol/L (3.6-5.2)
[2024-10-25 05:52] LABS: ANION GAP 13.7 mmol/L (5.0-14.0)
[2024-10-25 05:54] LABS: CREATININE 3.5 mg/dL (0.6-1.0)
[2024-10-25 05:57] LABS: INR 4.9
[2024-10-25] MEDS: Levothyroxine 112 MCG Tab PO SCH (07:54)
[2024-10-25] MEDS: Levothyroxine 25 MCG Tab PO SCH (07:55)
[2024-10-25] MEDS: Pantoprazole 40 MG Tab.CR PO SCH (07:55)
[2024-10-25] MEDS: Phytonadione 5 MG Tab PO ONE (09:46)
[2024-10-25] MEDS: Ondansetron 4 MG Tab.DIS PO PRN (18:44)
[2024-10-25] MEDS: Dimethicone 20%/Zinc Oxide 25% 56 GM Spray Bottle TOP PRN (18:44)
[2024-10-25] MEDS: Loperamide 2 MG Cap PO PRN (18:44)
[2024-10-26 05:10] LABS: INR 2.5; PROTHROMBIN TIME 24.5 sec (9.2-10.6)
[2024-10-26 05:11] LABS: CALCIUM 7.9 mg/dL (8.5-10.1); CREATININE 2.8 mg/dL (0.6-1.0); EST CRCL DRUG DOSING (CG) 13.25 mL/min; POTASSIUM,K 4.3 mmol/L (3.6-5.2)
[2024-10-26 05:18] LABS: ANION GAP 11.3 mmol/L (5.0-14.0)
[2024-10-27 05:03] LABS: INR 1.7
[2024-10-27 05:04] LABS: ANION GAP 10.4 mmol/L (5.0-14.0); CALCIUM 8.4 mg/dL (8.5-10.1); CREATININE 2.6 mg/dL (0.6-1.0); EST CRCL DRUG DOSING (CG) 14.26 mL/min; POTASSIUM,K 4.9 mmol/L (3.6-5.2)
[2024-10-27] MEDS: Warfarin 2.5 MG Tab PO ONE (12:18)
[2024-10-28 00:13] VITALS: PULSE 59
[2024-10-28 05:26] LABS: CALCIUM 8.4 mg/dL (8.5-10.1); CREATININE 2.4 mg/dL (0.6-1.0); EST CRCL DRUG DOSING (CG) 15.45 mL/min; INR 1.9; POTASSIUM,K 4.7 mmol/L (3.6-5.2)
[2024-10-28 05:31] LABS: ANION GAP 14.7 mmol/L (5.0-14.0)
[2024-10-28 11:10] VITALS: BP 138/48
[2024-10-28] MEDS ORDERED: Warfarin 2.5 MG Tab PO ONE (13:00)
[2024-10-30 10:36] LABS: NOROVIRUS 1 BY PCR Not Detected; NOROVIRUS 2 BY PCR Detected
== END 2024-10-28 11:31 | disposition home or self-care (01) | DRG 392 ==
LOC: JP.ED 15:08 → JP.MS 16:33
PROVIDERS: ADMIT Internal Medicine; ATTEND Hospitalist
DX: A08.4 Viral intestinal infection, unspecified (principal); N17.9 Acute kidney failure, unspecified; I13.0 Hypertensive heart and chronic kidney disease with heart failure and stage 1 through stage 4 chronic kidney disease, or unspecified chronic kidney disease; I48.20 Chronic atrial fibrillation, unspecified; N18.9 Chronic kidney disease, unspecified; I48.92 Unspecified atrial flutter; E11.9 Type 2 diabetes mellitus without complications; I42.8 Other cardiomyopathies; N18.4 Chronic kidney disease, stage 4 (severe); Z88.8 Allergy status to other drugs, medicaments and biological substances; Z79.890 Hormone replacement therapy; E86.0 Dehydration; I50.9 Heart failure, unspecified; H54.7 Unspecified visual loss; E78.00 Pure hypercholesterolemia, unspecified; M19.90 Unspecified osteoarthritis, unspecified site; E11.22 Type 2 diabetes mellitus with diabetic chronic kidney disease; E03.9 Hypothyroidism, unspecified; Z88.1 Allergy status to other antibiotic agents; Z88.2 Allergy status to sulfonamides; Z79.84 Long term (current) use of oral hypoglycemic drugs; Z79.01 Long term (current) use of anticoagulants; Z79.899 Other long term (current) drug therapy; Z85.3 Personal history of malignant neoplasm of breast; Z95.0 Presence of cardiac pacemaker; Z90.49 Acquired absence of other specified parts of digestive tract
CPT/HCPCS: 36415; 80048; 80053; 82947; 83605; 83690; 83735; 85025; 85027; 85610; 87046; 87427; 87428-QW; 87493; 87798; 89055; 96360; 99222; 99232; 99238; 99285; 99285-25; A9270-GY; J2470; J7030; Q0162

== ENCOUNTER 2024-11-06 18:11 | Inpatient (IN) | payer MEDICARE, BC ==
[2024-11-06 19:07] LABS: BASOPHILS ABSOLUTE AUTO 0.09 K/uL (0.00-0.10); BASOPHILS PERCENT AUTO 1.2 % (0.1-1.3); EOSINOPHILS ABSOLUTE AUTO 0.36 K/uL (0.00-0.40); HEMATOCRIT 34.6 % (34.3-46.0); HEMOGLOBIN 11.8 g/dL (11.2-15.5); IMMATURE GRAN ABSOLUTE AUTO 0.03 K/uL (0.00-0.23); IMMATURE GRAN PERCENT AUTO 0.4 % (0.0-0.7); LYMPHOCYTES ABSOLUTE AUTO 1.01 K/uL (0.8-3.3); MEAN CORPUSCULAR HEMOGLOBIN 30.5 pg (31.6-35.5); MEAN CORPUSCULAR HGB CONC 34.1 g/dL (31.6-35.5); MEAN CORPUSCULAR VOLUME 89.4 fL (81.4-99.0); MONOCYTES ABSOLUTE AUTO 0.74 K/uL (0.20-0.90); MONOCYTES PERCENT AUTO 10.3 % (3.3-12.6); NEUTROPHILS ABSOLUTE AUTO 4.98 K/uL (1.0-7.6); NEUTROPHILS PERCENT AUTO 69.1 % (40.0-78.1); PLATELET COUNT,PLT 195 K/uL (130-375); RED BLOOD CELL COUNT 3.87 M/uL (3.77-5.24); WHITE BLOOD CELL COUNT,WBC 7.2 K/uL (3.2-11.0)
[2024-11-06] MEDS: Albuterol/Ipratropium 3.0-0.5 MG/3 ML Neb Soln NEB ONE (19:09)
[2024-11-06] MEDS: Sodium Chloride 0.9% 10 ML Syringe FLUSH PRN (19:09)
[2024-11-06 19:33] LABS: A/G RATIO 0.8 (1.2-2.2); ALANINE AMINOTRANSFERASE,ALT 21 U/L (12-78); ALBUMIN 3.1 g/dL (3.4-5.0); ALKALINE PHOSPHATASE 74 U/L (46-116); ASPARTATE AMNIOTRANSFERASE,AST 20 U/L (15-37); BILIRUBIN TOTAL 0.4 mg/dL (0.2-1.0); BLOOD UREA NITROGEN,BUN 35 mg/dL (7-18); CALCIUM 8.4 mg/dL (8.5-10.1); CARBON DIOXIDE,CO2 26 mmol/L (21-32); CHLORIDE,CL 103 mmol/L (100-108); CREATININE 2.3 mg/dL (0.6-1.0); EST CRCL DRUG DOSING (CG) 17.27 mL/min; ESTIMATED GFR 20 mL/min (>60); GLUCOSE RANDOM 155 mg/dL (74-106); POTASSIUM,K 4.9 mmol/L (3.6-5.2); SODIUM,NA 138 mmol/L (140-148)
[2024-11-06 19:34] LABS: ANION GAP 13.9 mmol/L (5.0-14.0)
[2024-11-06] MEDS ORDERED: Azithromycin 500 MG Vial IV ONE (20:28)
[2024-11-06] MEDS: cefTRIAXone 1 GM in Sodium Chloride 0.9% 50 ML IV ONE (20:37)
[2024-11-06] MEDS: Furosemide 20 MG/2 ML VIAL IVPUSH ONE (20:52)
[2024-11-06] MEDS: Azithromycin 500 MG in Sodium Chloride 0.9% 250 ML IV ONE (20:54)
[2024-11-06] MEDS ORDERED: oxyCODONE 5 MG Tab PO PRN (21:54)
[2024-11-06] MEDS ORDERED: Bisacodyl 5 MG Tab PO PRN (21:54)
[2024-11-06] MEDS ORDERED: Morphine 2 MG/ML SYRINGE IVPUSH PRN (21:54)
[2024-11-06] MEDS ORDERED: Ondansetron 4 MG Tab.DIS PO PRN (21:54)
[2024-11-06] MEDS ORDERED: Docusate Sodium 100 MG Cap PO PRN (21:54)
[2024-11-06] MEDS ORDERED: Naloxone 0.4 MG/ML SDV IVPUSH PRN (21:54)
[2024-11-06] MEDS: hydrALAZINE 25 MG Tab PO SCH (22:45)
[2024-11-06] MEDS: Albuterol/Ipratropium 3.0-0.5 MG/3 ML Neb Soln NEB SCH (22:45)
[2024-11-06] MEDS: methylPREDNISolone Sodium Succinate 40 MG/1 ML SDV IVPUSH SCH (22:45)
[2024-11-07 05:56] LABS: HEMATOCRIT 35.8 % (34.3-46.0); MEAN CORPUSCULAR HEMOGLOBIN 29.7 pg (31.6-35.5); MEAN CORPUSCULAR HGB CONC 33.5 g/dL (31.6-35.5); MEAN CORPUSCULAR VOLUME 88.6 fL (81.4-99.0); PLATELET COUNT,PLT 201 K/uL (130-375); RED BLOOD CELL COUNT 4.04 M/uL (3.77-5.24); WHITE BLOOD CELL COUNT,WBC 6.9 K/uL (3.2-11.0)
[2024-11-07 06:11] LABS: INR 2.8; PROTHROMBIN TIME 27.2 sec (9.2-10.6)
[2024-11-07 06:16] LABS: CALCIUM 8.7 mg/dL (8.5-10.1); CREATININE 2.2 mg/dL (0.6-1.0); EST CRCL DRUG DOSING (CG) 18.12 mL/min; POTASSIUM,K 5.3 mmol/L (3.6-5.2)
[2024-11-07 06:26] LABS: ANION GAP 14.3 mmol/L (5.0-14.0)
[2024-11-07 06:47] LABS: LYMPHOCYTES ABSOLUTE MAN 0.55 K/uL (0.8-3.3); LYMPHOCYTES PERCENT MAN 8 % (24-44); METAMYELOCYTE ABSOLUTE MAN 0.07 K/uL; METAMYELOCYTE PERCENT MAN 1 %; MONOCYTES ABSOLUTE MAN 0.14 K/uL (0.20-0.90); MONOCYTES PERCENT MAN 2 % (2-6); NEUTROPHILS ABSOLUTE MAN 6.14 K/uL (1.0-7.6); SEG NEUTROPHILS PERCENT MAN 89 % (36-66)
[2024-11-07] MEDS ORDERED: Levothyroxine 112 MCG Tab PO SCH (07:30)
[2024-11-07] MEDS ORDERED: Levothyroxine 25 MCG Tab PO SCH (07:30)
[2024-11-07] MEDS: Ezetimibe 10 MG Tab PO SCH (08:12)
[2024-11-07] MEDS: Carvedilol 12.5 MG Tab PO SCH (08:12)
[2024-11-07] MEDS: Cholecalciferol (Vitamin D3) 25 MCG Tab PO SCH (08:12)
[2024-11-07] MEDS: glipiZIDE 5 MG Tab PO SCH (08:16)
[2024-11-07] MEDS: Losartan 25 MG Tab PO SCH (08:18)
[2024-11-07] MEDS: Warfarin 2.5 MG Tab PO SCH (13:34)
[2024-11-07] MEDS: guaiFENesin/Dextromethorphan 100-10 MG/5 ML Soln 10 ML Cup PO PRN (15:03)
[2024-11-07] MEDS: Benzonatate 100 MG Cap PO PRN (15:04)
[2024-11-07] MEDS: Acetaminophen 325 MG Tab PO PRN (15:04)
[2024-11-07] MEDS: Insulin Lispro 100 Unit/ML 3 ML KwikPen SUBCUT SCH (17:28)
[2024-11-07] MEDS: cefTRIAXone 1 GM in Sodium Chloride 0.9% 50 ML IV SCH (21:12)
[2024-11-07] MEDS: Azithromycin 250 MG Tab PO SCH (21:13)
[2024-11-07] MEDS ORDERED: Azithromycin 500 MG in Sodium Chloride 0.9% 250 ML IV SCH (21:30)
[2024-11-08 05:27] LABS: HEMATOCRIT 34.8 % (34.3-46.0); HEMOGLOBIN 11.9 g/dL (11.2-15.5); MEAN CORPUSCULAR HEMOGLOBIN 30.4 pg (31.6-35.5); MEAN CORPUSCULAR HGB CONC 34.2 g/dL (31.6-35.5); MEAN CORPUSCULAR VOLUME 88.8 fL (81.4-99.0); RED BLOOD CELL COUNT 3.92 M/uL (3.77-5.24); WHITE BLOOD CELL COUNT,WBC 11.4 K/uL (3.2-11.0)
[2024-11-08 05:44] LABS: INR 2.8; PROTHROMBIN TIME 27.7 sec (9.2-10.6)
[2024-11-08 05:46] LABS: CALCIUM 8.9 mg/dL (8.5-10.1); CREATININE 2.3 mg/dL (0.6-1.0); EST CRCL DRUG DOSING (CG) 17.33 mL/min; POTASSIUM,K 5.2 mmol/L (3.6-5.2)
[2024-11-08 06:06] LABS: ANION GAP 13.2 mmol/L (5.0-14.0)
[2024-11-08] MEDS: Rosuvastatin 5 MG Tab PO SCH (08:05)
[2024-11-08] MEDS: Warfarin 2.5 MG Tab PO SCH (14:47)
[2024-11-09 05:19] LABS: HEMATOCRIT 34.3 % (34.3-46.0); HEMOGLOBIN 11.4 g/dL (11.2-15.5); MEAN CORPUSCULAR HEMOGLOBIN 29.7 pg (31.6-35.5); MEAN CORPUSCULAR HGB CONC 33.2 g/dL (31.6-35.5); MEAN CORPUSCULAR VOLUME 89.3 fL (81.4-99.0); RED BLOOD CELL COUNT 3.84 M/uL (3.77-5.24); WHITE BLOOD CELL COUNT,WBC 11.4 K/uL (3.2-11.0)
[2024-11-09 05:34] LABS: CALCIUM 8.7 mg/dL (8.5-10.1); CREATININE 2.4 mg/dL (0.6-1.0); EST CRCL DRUG DOSING (CG) 16.61 mL/min; POTASSIUM,K 4.5 mmol/L (3.6-5.2)
[2024-11-09 05:38] LABS: INR 3.6; PROTHROMBIN TIME 34.5 sec (9.2-10.6)
[2024-11-09 05:47] LABS: ANION GAP 12.5 mmol/L (5.0-14.0)
[2024-11-09] MEDS: Oxymetazoline 0.05% Nasal Spray 30 ML Bottle NAS PRN (11:20)
[2024-11-09] MEDS: Sodium Chloride 0.65% Nasal Spray 45 ML Bottle NAS PRN (15:28)
[2024-11-09] MEDS: Benzocaine/Cetylpyridinium/Menthol Lozenge MUCMEM PRN (17:55)
[2024-11-10 05:11] LABS: HEMATOCRIT 34.8 % (34.3-46.0); HEMOGLOBIN 11.7 g/dL (11.2-15.5); MEAN CORPUSCULAR HEMOGLOBIN 30.2 pg (31.6-35.5); MEAN CORPUSCULAR HGB CONC 33.6 g/dL (31.6-35.5); MEAN CORPUSCULAR VOLUME 89.7 fL (81.4-99.0); RED BLOOD CELL COUNT 3.88 M/uL (3.77-5.24); WHITE BLOOD CELL COUNT,WBC 9.3 K/uL (3.2-11.0)
[2024-11-10 05:27] LABS: CALCIUM 8.7 mg/dL (8.5-10.1); CREATININE 2.2 mg/dL (0.6-1.0); EST CRCL DRUG DOSING (CG) 18.12 mL/min; POTASSIUM,K 4.7 mmol/L (3.6-5.2)
[2024-11-10 05:29] LABS: INR 2.9; PROTHROMBIN TIME 28.2 sec (9.2-10.6)
[2024-11-10 05:42] LABS: ANION GAP 12.7 mmol/L (5.0-14.0)
[2024-11-10] MEDS: hydrOXYzine HCl 25 MG Tab PO PRN (10:22)
[2024-11-10] MEDS: predniSONE 20 MG Tab PO ONE (12:26)
[2024-11-10] MEDS: Codeine/guaiFENesin 10-100 MG/5 ML Syrup 5 ML Cup PO PRN (17:45)
[2024-11-11 06:18] LABS: CALCIUM 8.6 mg/dL (8.5-10.1); CREATININE 2.2 mg/dL (0.6-1.0); EST CRCL DRUG DOSING (CG) 18.12 mL/min; POTASSIUM,K 4.8 mmol/L (3.6-5.2)
[2024-11-11 06:19] LABS: ANION GAP 13.8 mmol/L (5.0-14.0)
[2024-11-11 06:21] LABS: PROTHROMBIN TIME 20.2 sec (9.2-10.6)
[2024-11-11 11:29] VITALS: BP 162/77; PULSE 80
[2024-11-11] MEDS: predniSONE 20 MG Tab PO ONE (12:34)
== END 2024-11-11 13:10 | disposition home health service (06) | DRG 193 ==
LOC: JP.ED 18:11 → JP.MS 21:18
PROVIDERS: ADMIT Nurse Practitioner; ATTEND Internal Medicine
DX: J18.9 Pneumonia, unspecified organism (principal); J96.01 Acute respiratory failure with hypoxia; I13.0 Hypertensive heart and chronic kidney disease with heart failure and stage 1 through stage 4 chronic kidney disease, or unspecified chronic kidney disease; N18.9 Chronic kidney disease, unspecified; I48.91 Unspecified atrial fibrillation; N18.4 Chronic kidney disease, stage 4 (severe); I48.92 Unspecified atrial flutter; I48.20 Chronic atrial fibrillation, unspecified; R47.01 Aphasia; E11.22 Type 2 diabetes mellitus with diabetic chronic kidney disease; Z79.890 Hormone replacement therapy; I50.9 Heart failure, unspecified; E78.00 Pure hypercholesterolemia, unspecified; M19.90 Unspecified osteoarthritis, unspecified site; E03.9 Hypothyroidism, unspecified; F15.90 Other stimulant use, unspecified, uncomplicated; Z88.2 Allergy status to sulfonamides; Z88.8 Allergy status to other drugs, medicaments and biological substances; Z79.02 Long term (current) use of antithrombotics/antiplatelets; Z79.01 Long term (current) use of anticoagulants; Z79.899 Other long term (current) drug therapy; Z99.81 Dependence on supplemental oxygen; Z87.440 Personal history of urinary (tract) infections; Z87.442 Personal history of urinary calculi; Z86.73 Personal history of transient ischemic attack (TIA), and cerebral infarction without residual deficits; Z85.3 Personal history of malignant neoplasm of breast; Z95.810 Presence of automatic (implantable) cardiac defibrillator; Z90.49 Acquired absence of other specified parts of digestive tract; Z90.89 Acquired absence of other organs; Z98.890 Other specified postprocedural states
CPT/HCPCS: 36415; 71046; 71046-26; 80048; 80053; 82947; 83880; 84484; 85025; 85027; 85610; 87040; 87428-QW; 93005; 93010; 94640; 94667; 94668; 96365; 96375; 99222; 99232; 99238; 99285; 99285-25; A9270-GY; J0456; J0696; J1815; J1940; J2919; J3490; J7050; J7512; J7620

== ENCOUNTER 2024-12-23 23:59 | Emergency (ER) | payer MEDICARE, BC ==
[2024-12-24] MEDS: methylPREDNISolone Sodium Succinate 125 MG/2 ML SDV IVPUSH ONE (00:47)
[2024-12-24] MEDS: diphenhydrAMINE 50 MG/ML SDV IVPUSH ONE (01:18)
[2024-12-24] MEDS: Sodium Chloride 0.9% 10 ML Syringe FLUSH PRN (01:19)
[2024-12-24 01:35] LABS: HEMATOCRIT 38.9 % (34.3-46.0); HEMOGLOBIN 12.7 g/dL (11.2-15.5); IMMATURE GRAN ABSOLUTE AUTO 0.04 K/uL (0.00-0.23); IMMATURE GRAN PERCENT AUTO 0.4 % (0.0-0.7); LYMPHOCYTES ABSOLUTE AUTO 1.81 K/uL (0.8-3.3); LYMPHOCYTES PERCENT AUTO 18.1 % (11.4-47.7); MEAN CORPUSCULAR HEMOGLOBIN 29.8 pg (31.6-35.5); MEAN CORPUSCULAR HGB CONC 32.6 g/dL (31.6-35.5); MEAN CORPUSCULAR VOLUME 91.3 fL (81.4-99.0); MONOCYTES ABSOLUTE AUTO 0.98 K/uL (0.20-0.90); MONOCYTES PERCENT AUTO 9.8 % (3.3-12.6); NEUTROPHILS ABSOLUTE AUTO 6.76 K/uL (1.0-7.6); NEUTROPHILS PERCENT AUTO 67.7 % (40.0-78.1); PLATELET COUNT,PLT 190 K/uL (130-375); RED BLOOD CELL COUNT 4.26 M/uL (3.77-5.24)
[2024-12-24 02:01] LABS: ALANINE AMINOTRANSFERASE,ALT 16 U/L (12-78); ALBUMIN 3.6 g/dL (3.4-5.0); ALKALINE PHOSPHATASE 75 U/L (46-116); ANION GAP 11.6 mmol/L (5.0-14.0); ASPARTATE AMNIOTRANSFERASE,AST 18 U/L (15-37); BILIRUBIN TOTAL 0.5 mg/dL (0.2-1.0); BLOOD UREA NITROGEN,BUN 32 mg/dL (7-18); CALCIUM 9.5 mg/dL (8.5-10.1); CARBON DIOXIDE,CO2 24 mmol/L (21-32); CHLORIDE,CL 104 mmol/L (100-108); CREATININE 2.2 mg/dL (0.6-1.0); EST CRCL DRUG DOSING (CG) 18.75 mL/min; ESTIMATED GFR 21 mL/min (>60); GLUCOSE RANDOM 174 mg/dL (74-106); POTASSIUM,K 4.3 mmol/L (3.6-5.2); PROTEIN TOTAL,TP 7.3 g/dL (6.4-8.2); SODIUM,NA 140 mmol/L (140-148)
[2024-12-24 02:40] VITALS: BP 126/69; PULSE 56
== END 2024-12-24 02:41 | disposition home or self-care (01) ==
LOC: JP.ED 23:59
DX: L50.9 Urticaria, unspecified (principal); I13.0 Hypertensive heart and chronic kidney disease with heart failure and stage 1 through stage 4 chronic kidney disease, or unspecified chronic kidney disease; I50.9 Heart failure, unspecified; N18.9 Chronic kidney disease, unspecified; E11.22 Type 2 diabetes mellitus with diabetic chronic kidney disease; E03.9 Hypothyroidism, unspecified; E78.00 Pure hypercholesterolemia, unspecified; I48.91 Unspecified atrial fibrillation; Z88.2 Allergy status to sulfonamides; Z88.8 Allergy status to other drugs, medicaments and biological substances; Z79.84 Long term (current) use of oral hypoglycemic drugs; Z79.899 Other long term (current) drug therapy; Z79.01 Long term (current) use of anticoagulants; Z86.73 Personal history of transient ischemic attack (TIA), and cerebral infarction without residual deficits; Z90.49 Acquired absence of other specified parts of digestive tract
CPT/HCPCS: 36415; 80053; 85025; 96374; 96375; 99283; J1200; J2919